=== PATIENT | female | born 1995 | race Caucasian/White ===

== ENCOUNTER 2020-02-19 05:56 | Day surgery (SDC) | payer BC ==
[2020-02-13 09:59] VITALS: BMI 41.8
[2020-02-19] MEDS ORDERED: PROPOFOL 20 ML ONE ×4 (07:12→10:27)
[2020-02-19] MEDS ORDERED: SUCCINYLCHOLINE CHLORIDE 200 MG/10 ML SYRINGE ONE (07:12)
[2020-02-19] MEDS ORDERED: MIDAZOLAM HCL 2 MG/2 ML SINGLE DOSE VIAL ONE ×3 (07:12→07:46)
[2020-02-19] MEDS ORDERED: EPHEDRINE SULFATE/0.9% NACL/PF 50 MG/10 ML SYRINGE NR ONE (07:13)
[2020-02-19] MEDS ORDERED: BUPIVACAINE HCL/PF 0.25% (2.5MG/ML) 10 ML VIAL ONE (07:13)
[2020-02-19] MEDS ORDERED: POLYMYXIN B SULFATE 500,000 UNIT VIAL ONE (07:13)
[2020-02-19] MEDS ORDERED: GENTAMICIN SO4 80 MG/2 ML VIAL ONE (07:13)
[2020-02-19] MEDS ORDERED: ROCURONIUM BROMIDE 50 MG/5 ML SYRINGE ONE (07:15)
[2020-02-19] MEDS ORDERED: BUPIVACAINE HCL/PF 0.5% (5 MG/ML) 30 ML VIAL IJ ONE (07:23)
--- NOTE | 2020-02-19 07:37 | HP ---
Admitting History and Physical - Admission Chief Complaint: Morbid obesity History Source: Patient Limitations to Obtaining History: No Limitations - Past Medical History ...LMP: 01/25/20 - Past Surgical History Additional Past Surgical History: Cervical fusion Radiofrequency ablation greater saphenous veins Lumbar spinal fusion - Smoking History Smoking history: Never smoked Have you smoked in the past 12 months: No - Alcohol/Substance Use Hx Alcohol Use: No - Social History ADL: Independent Home Medications - Allergies Allergies/Adverse Reactions: Allergies Allergy/AdvReac Type Severity Reaction Status Date / Time No Known Allergies Allergy Verified 01/12/20 14:57 - Home Medications Home Medications: Ambulatory Orders Duloxetine HCl 30 mg PO DAILY 01/12/20 Duloxetine HCl 60 mg PO HS 01/12/20 Levonorgestrel-Ethin Estradiol [Larissia-28 Tablet] 1 each PO HS 01/12/20 Levothyroxine [Synthroid -] 150 mcg PO DAILY 01/12/20 Oxycodone HCl/Acetaminophen [Endocet 7.5-325 mg Tablet] 1 each PO QID 01/12/20 Tizanidine HCl 4 mg PO TID PRN 01/12/20 clonazePAM [Klonopin -] 0.5 mg PO BID 01/12/20 traZODone HCL [Desyrel -] 150 mg PO HS 01/12/20 Medical Marijuana [Medical Marijuana Capsules] 1 cap PO DAILY PRN 02/13/20 Family Medical History Family History: Unremarkable Review of Systems - Review of Systems Constitutional: denies: Chills, Fever HENT: reports: No Symptoms Neck: reports: No Symptoms Cardiovascular: reports: No Symptoms Respiratory: reports: No Symptoms Gastrointestinal: reports: No Symptoms Neurological: reports: No Symptoms Pain Intensity: 0 Physical Examination Vital Signs: Vital Signs Temperature 99 F 02/19/20 06:31 Pulse Rate 82 02/19/20 06:31 Respiratory Rate 18 02/19/20 06:31 Blood Pressure 126/89 02/19/20 06:31 O2 Sat by Pulse Oximetry (%) 97 02/19/20 06:31 Constitutional: Yes: Calm Cardiovascular: Yes: WNL Respiratory: Yes: WNL Gastrointestinal: Yes: Soft, Abdomen, Obese Neurological: Yes: Alert, Oriented Problem List - Problems (1) Morbid obesity due to excess calories Code(s): E66.01 - MORBID (SEVERE) OBESITY DUE TO EXCESS CALORIES (2) Morbid obesity with BMI of 40.0-44.9, adult Code(s): E66.01 - MORBID (SEVERE) OBESITY DUE TO EXCESS CALORIES; Z68.41 - BODY MASS INDEX (BMI) 40.0-44.9, ADULT Assessment/Plan Laparoscopic gastric band placement possible liver biopsy possible endoscopy
[2020-02-19] MEDS ORDERED: HYDROmorphone HCL/PF 1 MG/ML VIAL ONE ×2 (08:00→08:32)
[2020-02-19] MEDS ORDERED: ceFAZolin SODIUM 1 GM VIAL ONE (08:07)
[2020-02-19] MEDS ORDERED: DEXAMETHASONE SOD PHOSPHATE 4 MG/1 ML VIAL ONE (08:18)
[2020-02-19] MEDS ORDERED: ONDANSETRON 4 MG/2 ML VIAL ONE ×2 (08:18→10:05)
[2020-02-19] MEDS ORDERED: ONDANSETRON 4 MG/2 ML VIAL IVPUSH PRN ×2 (08:44→11:33)
[2020-02-19] MEDS ORDERED: LACTATED RINGERS SOLUTION 1,000 ML IV SCH (08:45)
[2020-02-19] MEDS ORDERED: HYDROmorphone HCL CARPU-JECT 1 MG/1 ML DISP.SYRIN IVPB PRN (08:47)
[2020-02-19] MEDS ORDERED: BUPIVACAINE HCL/PF 0.25% (2.5MG/ML) 10 ML VIAL IJ ONE (08:50)
[2020-02-19] MEDS ORDERED: METOPROLOL TARTRATE 5 MG/5 ML VIAL ONE (09:29)
[2020-02-19] MEDS ORDERED: NEOSTIGMINE METHYLSULFATE 0.5 MG/ML - 10 ML MDV ONE (09:35)
[2020-02-19] MEDS ORDERED: GLYCOPYRROLATE 0.2 MG/1 ML VIAL ONE (09:35)
--- NOTE | 2020-02-19 11:43 | OPR ---
Operative Note Operative Date: 02/19/20 Pre-Operative Diagnosis: Morbid obesity Operation: 1. Diagnostic laparoscopy. 2. Laparoscopic gastric band 3. Laparoscopic wedge liver biopsy. 4. Laparoscopic oversewing of small bowel serosal defect 5. Laproscopic lysis of adhesions of liver to abdominal wall 6. Laproscopic lysis of adhesions of bowel to bowel 7. Laproscopic lysis of adhesions of stomach to liver 8. Laproscopic repair of hiatal hernia Post-Operative Diagnosis: Same as Pre-op (as well as hepatomegaly and extensive intraabdominal adhesion and hiatal hernia) Surgeon: Felipe Yao Flavor Tank Tender: Wallace Stein Anesthesia: General Specimens Removed: Liver biopsy. Estimated Blood Loss (mls): 30 Drains & Tubes with Location: OG tube Operative Report Dictated: Yes
[2020-02-19] MEDS ORDERED: SODIUM CHLORIDE 1,000 ML IV SCH (11:45)
[2020-02-19] MEDS ORDERED: ACETAMINOPHEN 1000 MG/100 ML VIAL (NON FORMULARY) IVPB SCH (12:00)
[2020-02-19] MEDS ORDERED: ENOXAPARIN NA (PORCINE) 40 MG/0.4 ML DISP.SYRIN SQ ONE ×3 (12:00→14:55)
[2020-02-19] MEDS ORDERED: ACETAMINOPHEN INJECTION 100 ML IVPB ONE (12:06)
[2020-02-19] MEDS ORDERED: FAMOTIDINE 20 MG/50 ML IVPB 20 MG/50 ML MG IVPB ONE (12:06)
[2020-02-19] MEDS ORDERED: FAMOTIDINE 20 MG PREMIXED IVPB IVPB ONE (12:28)
[2020-02-19 12:32] LABS: HEMATOCRIT 38.3 % (32.4-45.2); HEMOGLOBIN 12.7 GM/dl (10.7-15.3); MCH 25.5 pg (25.7-33.7); MCHC 33.3 g/dl (32.0-36.0); MEAN CELL VOLUME 76.6 fl (80-96); MEAN PLT VOLUME 8.6 fl (7.5-11.1); PLATELET COUNT 246 K/MM3 (134-434); RDW 21.6 % (11.6-15.6); WHITE BLOOD COUNT 15.1 K/mm3 (4.0-10.8)
[2020-02-19 12:33] LABS: CALCIUM 8.7 mg/dl (8.5-10); CREATININE 0.7 mg/dl (0.55-1.3); POTASSIUM 4.6 mmol/L (3.5-5.1)
[2020-02-19 14:40] VITALS: TEMP 98
[2020-02-19] MEDS ORDERED: oxyCODONE HCL 5 MG TABLET ONE (15:52)
[2020-02-19 16:34] VITALS: BP 131/79
[2020-02-19 16:53] VITALS: PULSE 91
--- NOTE | 2020-02-19 19:51 | OP ---
DATE OF OPERATION: 02/19/2020 SURGEON: Felipe Yao MD. NATURAL RESOURCES ENGINEER: Wallace Stein MD. PLACE OF SURGERY: [facility], [address] [place] [address]. PREOPERATIVE DIAGNOSIS: 1. Morbid obesity. 2. Body mass index of 41.8. POSTOPERATIVE DIAGNOSIS: 1. Morbid obesity. 2. Body mass index of 41.8. 3. Extensive intraabdominal adhesions. 4. Hepatomegaly. 5. Serosal defect of the small bowel. 6. Hiatal hernia. PROCEDURES: 1. Diagnostic laparoscopy. 2. Extensive laparoscopic lysis of adhesions causing the case to be more complicated than normal and take more time than normal. 3. Laparoscopic gastric band placement with an AP large band. 4. Laparoscopic wedge liver biopsy. 5. Laparoscopic oversewing of small bowel serosal defect. 6. Repair of hiatal hernia. 7. Lysis of adhesions from bowel to bowel. 8. Lysis of adhesions from liver to anterior abdominal wall. 9. Lysis of adhesions for liver to stomach. SPECIMENS: Liver biopsy. BLOOD LOSS: 30 mL. DRAINS: None. ANESTHESIA: GET. OG tube. Lap band large. REASON FOR PROCEDURE: This is a 24-year-old female who presents to the office for weight loss options. I described different options. He decided to proceed with laparoscopic, possible open gastric band, possible liver biopsy, upper endoscopy. RISKS AND BENEFITS: After describing the different options for weight loss management, the patient decided to proceed with a laparoscopic, possible open, gastric band placement for gastric restriction. The patient was seen by the respective subspecialties and cleared for surgery. The risks and benefits of the procedure were explained. These included bleeding, infection, hernia, AL, DVT, PE, injury to surrounding structures including the liver, colon, bowel, spleen, esophagus, vessel injury, nerve injury, weight regain, obstruction, gastric band slip, gastric band erosion, port site slip, port site infection, vitamin deficiency, hair loss, and as some of the possible complications. The patient understood and signed informed consent. DESCRIPTION OF PROCEDURE: The patient was placed supine on the operating room table. The patient underwent general endotracheal intubation. The arms were brought out at 90 degrees and secured. A footboard was placed and the legs were secured laterally with padding. The abdomen was prepped and draped in the usual sterile fashion. A time-out was performed. An incision was made in the left upper quadrant and a Veress needle inserted. Pneumoperitoneum was established. The Veress needle was then removed. A 5-mm trocar was then placed under direct visualization with the laparoscope. Inspection of the abdominal cavity was then performed with the laparoscopic camera. Subsequently, in the right upper quadrant to the right of midline, a 15-mm trocar was inserted under direct visualization. A 5-mm trocar was placed further laterally in the right upper quadrant and a 5-mm trocar placed below the left costal margin. A stab wound was made in the subxiphoid area and a Megan clamp inserted and removed to dilate the tract. A Madison liver retractor was inserted. The post was secured at the bedside by the nursing staff. The patient was placed in steep reverse Trendelenburg position, and the Madison liver retractor was used to secure the liver towards the anterior abdominal wall. The fundus of the stomach was noted and grasped towards the patient's right side and caudad. The omentum was also retracted downward as well. Electrocautery was used to score the peritoneum over the left esophagogastric junction freeing this area until the left elizabeth of the diaphragm was noted. The stomach was then pulled laterally to the patients left side, and the caudate lobe of the liver was identified. The pars flaccida was identified, and an opening created within it. The right elizabeth of the diaphragm was noted. The caudate lobe of the liver was retracted, and the inferior vena cava was noted to be away from the field. The peritoneum anterior to the right elizabeth was scored with electrocautery, and a laparoscopic dissector was used to gently make a tunnel from the right to the left elizabeth until it was free in the left upper quadrant of the abdomen. The gastric band was then chosen and prepped by the rn medical surgical. This was then placed within the abdominal cavity. The band tubing was placed into the laparoscopic dissector, which was pulled and withdrawn to the patients right side. The band tubing was placed within the band buckle and secured, securing the band around the stomach. The band was noted to be in good position and not too tight around the stomach. The stomach was then imbricated over the band. An Endo Stitch was used to grab the body of the stomach and secured to itself, imbricating the stomach over the band. Hemostasis was noted. The band tubing was then brought out of the 15-mm trocar. A wedge liver biopsy was then performed. The left lobe of the liver was identified. A portion of the edge of the left lobe of the liver was grasped. Using electrocautery, a wedge of the left liver was excised. The specimen was removed and sent off the field. Hemostasis of the wedge liver biopsy site was attained and noted using electrocautery. The Madison liver retractor was removed under direct visualization. Pneumoperitoneum was desufflated and all trocars removed. The skin at the 15-mm trocar site was extended, and dissection continued until the anterior fascia was identified. Four 2-0 Prolene sutures were placed in the fascia. The end of the band tubing was cut and removed and sent off the field. The port was secured to the band tubing. The port was secured to the fascia using the four 2-0 Prolene sutures. Hemostasis was again noted. Marcaine was injected at all incision sites. A 3-0 Vicryl suture was used to close the deep subcutaneous tissue at the 15-mm incision site. 4-0 Biosyn sutures were used to close all incision sites. Sterile dressings were applied. The patient tolerated the procedure well and was transferred to the recovery room in stable condition. ADDENDUM: Please note that upon entering the abdominal cavity, extensive adhesions were noted, and the liver was severely enlarged with notable hepatomegaly. This caused the case to be more complicated and take longer than the usual time. Because of adhesions from bowel to bowel, liver to the anterior wall, liver to the stomach, and liver to bowel, these adhesions needed to be carefully taken down. This was done with a combination of LigaSure device, Endoshears, and hook, until all adhesions were carefully taken down. No adhesions were noted, and hemostasis was noted. A small serosal defect of the small bowel was noted, which was oversewn using an Endo Stitch device and Surgitek suture. Because of the lack of stability, an additional 12-mm trocar had to be placed in the supraumbilical area to assist with the surgery. Hiatal hernia was also noted; this was closed using the Endo Stitch with Surgitek suture in [id number] fashion. After the gastric band was placed and the liver biopsy was performed, the rest of the procedure was continued as normal. The fascia at the supraumbilical incision was closed using number 1 Vicryl suture in [id number] fashion until it was closed. This incision was also closed using a 3-0 Vicryl and mayte. Bim were placed at the supraumbilical and incision that was superior and to the right of the umbilicus. Patient tolerated procedure well and transferred to recovery in stable condition. Tl [id number]
[2020-02-19] MEDS ORDERED: FAMOTIDINE 20 MG/50 ML IVPB 20 MG/50 ML MG IVPB SCH (22:00)
--- NOTE | 2020-02-21 16:57 | PATH ---
Surgical Pathology Report Patient Name: GERSON GUARDADO [facility]. Rec. #: [id number] /Age/Gender: 1995 (Age: 24) / F Account: [id number] Location: Taken: 02/19/2020 Received: 02/19/2020 Reported: 02/21/2020 Physicians: Felipe Yao M.D. Specimen(s) Received LIVER BIOPSY Clinical History Morbid obesity Final Diagnosis LIVER, CORE BIOPSY: MILD STEATOHEPATITIS WITH DIFFUSE STEATOSIS (80%), MILD PERICELLULAR INFLAMMATION, AND FOCAL BALLOONING DEGENERATION OF HEPATOCYTES, SEE COMMENT. TRICHROME STAIN SHOWS PERIVENULAR, PERICELLULAR, AND PERIPORTAL FIBROSIS WITH FOCAL FIBROUS SEPTA (STAGE 2/4). IRON STAIN IS NEGATIVE FOR SIDEROSIS. NEGATIVE FOR MALIGNANCY. Electronically Signed Anu Mortensen M.D. Gross Description Received in formalin labeled "liver biopsy," is a 1.9 x 1.0 x 0.4 centimeter diaz-brown portion of soft tissue, consistent with a liver biopsy. The specimen is bisected and entirely submitted in one cassette. /02/20/2020 [facility]/02/20/2020
== END 2020-02-19 17:00 | disposition home or self-care (01) ==
LOC: FASUSAT 05:56
PROVIDERS: ATTEND Surgery
PROC: 0BQT4ZZ Repair Diaphragm, Percutaneous Endoscopic Approach (ICD-10-PCS; 2020-02-19)
PROC: 0DNE4ZZ Release Large Intestine, Percutaneous Endoscopic Approach (ICD-10-PCS; 2020-02-19)
PROC: 0DQ84ZZ Repair Small Intestine, Percutaneous Endoscopic Approach (ICD-10-PCS; 2020-02-19)
PROC: 0DV64CZ Restriction of Stomach with Extraluminal Device, Percutaneous Endoscopic Approach (ICD-10-PCS; principal; 2020-02-19 08:12)
PROC: 0FB24ZX Excision of Left Lobe Liver, Percutaneous Endoscopic Approach, Diagnostic (ICD-10-PCS; 2020-02-19 08:12)
DX: E66.01 Morbid (severe) obesity due to excess calories (principal); Z68.41 Body mass index [BMI] 40.0-44.9, adult; K66.0 Peritoneal adhesions (postprocedural) (postinfection); R16.0 Hepatomegaly, not elsewhere classified; K44.9 Diaphragmatic hernia without obstruction or gangrene; K91.72 Accidental puncture and laceration of a digestive system organ or structure during other procedure
CPT/HCPCS: 36415; 74240-TC-FY; 80048; 81025; 85027; 88305-TC; 88313-TC; 94760; J0131

== ENCOUNTER 2020-05-20 04:38 | Inpatient (IN) | payer BC ==
[2020-05-17 16:41] VITALS: BMI 35.7
[2020-05-20] MEDS ORDERED: HEPARIN NA (PORCINE) 5,000 UNITS/ML 1ML VIAL ONE (07:20)
[2020-05-20] MEDS ORDERED: THROMBIN (BOVINE) 5,000 UNIT VIAL TP ONE ×2 (07:20→09:26)
[2020-05-20] MEDS ORDERED: MIDAZOLAM HCL 2 MG/2 ML SINGLE DOSE VIAL ONE ×2 (08:01→13:04)
[2020-05-20] MEDS ORDERED: PROPOFOL 20 ML ONE ×14 (08:01→13:57)
[2020-05-20] MEDS ORDERED: ROCURONIUM BROMIDE 50 MG/5 ML SYRINGE ONE ×2 (08:01→10:07)
[2020-05-20] MEDS ORDERED: SUCCINYLCHOLINE CHLORIDE 200 MG/10 ML SYRINGE ONE (08:01)
[2020-05-20] MEDS ORDERED: fentaNYL CITRATE 250 MCG/5 ML VIAL ONE ×4 (08:01→11:35)
[2020-05-20] MEDS ORDERED: LIDOCAINE HCL/PF 2% SDV 5ML VIAL ONE (08:03)
[2020-05-20] MEDS ORDERED: ceFAZolin SODIUM 1 GM VIAL ONE ×2 (09:15→14:13)
[2020-05-20] MEDS ORDERED: VANCOMYCIN 1,000 MG VIAL (RESTRICTED TO ID ONLY) ONE (09:15)
[2020-05-20] MEDS ORDERED: SODIUM CHLORIDE 0.9% P/F 10 ML VIAL IJ ONE ×2 (09:15→14:13)
[2020-05-20] MEDS ORDERED: ceFAZolin SODIUM 1 GM VIAL IVPB ONE ×2 (09:20→14:15)
[2020-05-20] MEDS ORDERED: DEXAMETHASONE SOD PHOSPHATE 4 MG/1 ML VIAL ONE (09:24)
[2020-05-20] MEDS ORDERED: ONDANSETRON 4 MG/2 ML VIAL ONE (09:24)
[2020-05-20] MEDS ORDERED: TRANEXAMIC ACID 1000 MG/10 ML VIAL ONE (09:24)
[2020-05-20] MEDS ORDERED: VANCOMYCIN 1,000 MG VIAL (RESTRICTED TO ID ONLY) IVPB ONE (09:25)
[2020-05-20] MEDS ORDERED: GELATIN SPONGE,ABSORBABLE 1 GM PACKET TP ONE (09:26)
[2020-05-20] MEDS ORDERED: GELATIN, ABSORBABLE 12-7MM EACH SPONGE TP ONE (09:26)
[2020-05-20] MEDS ORDERED: DESFLURANE GAS 240 ML BOTTLE IH ONE (09:36)
[2020-05-20] MEDS ORDERED: BUPIVACAINE LIPOSOME/PF (EXPAREL) 266 MG/20 ML VIAL ONE (12:05)
[2020-05-20] MEDS ORDERED: BUPIVACAINE HCL/PF 0.5% (5 MG/ML) 30 ML VIAL IJ ONE ×2 (12:15→13:57)
[2020-05-20] MEDS ORDERED: BUPIVACAINE LIPOSOME/PF (EXPAREL) 266 MG/20 ML VIAL NR ONE ×2 (12:16→13:57)
[2020-05-20] MEDS ORDERED: METOPROLOL TARTRATE 5 MG/5 ML VIAL ONE ×2 (14:17→14:55)
[2020-05-20] MEDS ORDERED: NEOSTIGMINE METHYLSULFATE 0.5 MG/1 ML - 10 ML MDV ONE (14:31)
[2020-05-20] MEDS ORDERED: GLYCOPYRROLATE 0.2 MG/1 ML VIAL ONE (14:31)
[2020-05-20] MEDS ORDERED: hydrALAZINE HCL 20 MG/ML VIAL ONE (15:13)
[2020-05-20] MEDS ORDERED: PROMETHAZINE HCL 25 MG/1 ML VIAL IVPUSH PRN (15:27)
[2020-05-20] MEDS ORDERED: ONDANSETRON 4 MG/2 ML VIAL IVPUSH PRN ×3 (15:27→15:49)
[2020-05-20] MEDS ORDERED: DEXAMETHASONE SOD PHOSPHATE 4 MG/1 ML VIAL IVPUSH PRN (15:27)
[2020-05-20] MEDS ORDERED: PROMETHAZINE HCL 25 MG/1 ML VIAL IVPB PRN (15:27)
--- NOTE | 2020-05-20 15:29 | PN ---
Progress Note (short form) - Note Progress Note: 24F s/p L3-S1 removal of hardware, inspection of fusion mass, revision laminectomies & facetectomies; L3-L4, L4-L5, L5-S1 PLIF; L3-S1 posterior/lateral instrumented spinal fusion POD #0. Output: -Blood loss: 3L. -Urine output: 100cc. Intake: -Cell saver blood: 1L. -4U PRBC: 1.4L. -2U FFP: 642cc. -LR: 3L. -NS: 1L. -Admit to ICU post-op. -Strict I's & O's & fluid management. -Pain control: NO NSAID's; patient received intra-op paraspinal muscle block w/Exparel & marcaine; OK to use SECURITY COMPLIANCE SPECIALIST if needed; transition to oral analgesia post-op. -DVT PPx: -Mechanical only: SUDHIR's, SCD's. -Chemical: None. -Incentive spirometry q15 min. -NPO until flatus. -Barker care; d/c when ambulating. -Ancef post-op x 3 doses; Vancomycin post-op x 24 hours. -PT/OT/Rehab, OOB. -WBAT B/L LE. -No bending, lifting (>5 lbs), or twisting for 9-12 months. -Care per ICU & medical hospitalist teams. -Discharge planning: [facility] preferred if pt. needs rehab; f/u 7-10 days after rehab (or hospital) discharge at [facility] office; call for appointment; . -Will follow. Flako Bryan MD (Orthopaedic Surgery).
--- NOTE | 2020-05-20 15:41 | OP ---
Operative Note - Note: Operative Date: 05/20/20 Pre-Operative Diagnosis: 1. L3-S1 spinal stenosis with associated radiculopathy and neurogenic claudication. 2. Lumbo-sacral pseudarthrosis Operation: 1. Revision laminectomies and facetectomies L3-S1. 2. Osteotomies L3-S1. 3. L3-L4, L4-L5, L5-S1 PLIF. 4. L3-S1 posterolateral instrumented arthrodesis. 5. BMAC autograft. 6. Bone autograft. 7. Bone allograft Findings: 1. Pseudarthrosis L3-L4, L5-S1 2. Broken screw LEFT S1 3. Extensive epidural fibrosis 4. Dural defect involving RIGHT L5 nerve root sleeve w/herniated nerve root Implants: Cages: L3-L4: 13mm. L4-L5: 14mm. L5-S1: 11mm. Screws: Precision reform. L3 6.5x45mm. L4, L5 6.5x40mm. S1 8.5x35mm Post-Operative Diagnosis: Same as Pre-op Surgeon: Flkao Bryan Glue Cook: Taran Bryan Anesthesiologist/SCREWHEAD POLISHER: Abundio Mann Anesthesia: General Specimens Removed: L3-S1 hardware. L3-L4, L4-L5, L5-S1 discs Estimated Blood Loss (mls): 3,000 Drains & Tubes with Location: 1 x 19F superficial HemoVac Blood Volume Replaced (mls): 1,000 (Cell Saver) Fluid Volume Replaced (mls): 4,000 (Crystalloid) Operative Report Dictated: Yes
[2020-05-20] MEDS: LACTATED RINGERS SOLUTION 1,000 ML IV SCH (15:55)
[2020-05-20] MEDS: HYDROmorphone *PCA* 10MG/50ML DISP.SYRIN PCA SCH (15:55)
[2020-05-20] MEDS ORDERED: LACTATED RINGERS SOLUTION 1,000 ML IV SCH (16:00)
--- NOTE | 2020-05-20 16:44 | OP ---
Date of Operation: 05/20/2020 Pre-Operative Diagnosis: 1. 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 2. L3-S1 spinal stenosis with neurogenic claudication. 3. L4-L5, L5-S1 axial segmental instability with associated myofascial pain complex and lumbosacral enthesopathy. 4. In-situ L3-S1 hardware with questionable pseudarthrosis. Post-Operative Diagnosis: 1. 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 2. Severe L3-S1 spinal stenosis with neurogenic claudication. 3. L4-L5, L5-S1 axial segmental instability with associated myofascial pain complex and lumbosacral enthesopathy. 4. L3-L4, L5-S1 pseudarthrosis. 5. Broken hardware (left S1 screw). 5. Extensive epidural fibrosis. 6. Dural defect involving right L5 nerve root sleeve w/herniated nerve root. Procedure Performed: 1. Removal of bilateral posterior segmental instrumentation L3-S1. () 2. Inspection of spinal fusion mass L3-S1. () 3. L3 revision bilateral laminectomies and facetectomies. () 4. L4 revision bilateral laminectomies and facetectomies. () 5. L5 revision bilateral laminectomies and facetectomies. () 6. S1 revision bilateral laminectomies and facetectomies. () 7. L3 bilateral posterior osteotomies. ([id number]) 8. L4 bilateral posterior osteotomies. () 9. L5 bilateral posterior osteotomies. () 10. S1 bilateral posterior osteotomies. (41062-88-64) 11. L3-L4 posterior lumbar interbody fusion (PLIF) and bilateral posterior/lateral arthrodesis. ([id number]) 12. L4-L5 posterior lumbar interbody fusion (PLIF) and bilateral posterior/lateral arthrodesis. ([id number]) 13. L5-S1 posterior lumbar interbody fusion (PLIF) and bilateral posterior/lateral arthrodesis. ([id number]) 14. L3-L4 insertion biomechanical device. ([id number]) 15. L4-L5 insertion biomechanical device. () 16. L5-S1 insertion biomechanical device. () 17. L3-S1 posterior instrumentation; 4 vertebral segments. () 18. Deformity correction; taoism of lordosis. () 19. Morselized bone autograft. () 20. Morselized bone allograft. () 21. Bone marrow aspiration for bone grafting. () 22. Complex wound closure, 4 layers, 30cm. ([id number] x 4) 23. Fluoroscopy. ([id number]) 24. Durotomy repair. ([id number]) Surgeon: Flako Bryan M.D. Driver Material Handler: Taran Bryan M.D. Anesthesiologist: Tequila Mann M.D. Anesthesia: General, Local. Implants: Cages: RTI Fortilink Tetrafuse: L3-L4: 13mm. L4-L5: 14mm. L5-S1: 11mm. 6 degrees lordosis, each cage. Screws: Precision Reform: L3 6.5x45mm bilaterally. L4, L5 6.5x40mm bilaterally. S1 8.5x35mm bilaterally. Rods: 100mm bilaterally. Position: Prone. Incision: Midline. Specimens Removed: L3-S1 hardware; excised scar; L3-S1, L4-L5, L5-S1 disc. Drains: 1 x 19F superficial HemoVac. Estimated Blood Loss: 3L. Intravenous Fluid: 4L crystalloid. Transfusions: 1L Cell Saver; 4U PRBC; 2U FFP. Complications: None. Bacteriology: None. Closure: No. 1 Vicryl, 2-0 Biosyn absorbable sutures. Indications: The patient was indicated for the above listed surgical procedure due to progressive neurological and functional decline that limits her mobility and capacity to independently perform routine activities of daily living. In the months leading up to the procedure, the patient became bedbound and was barely able to ambulate with maximum assistance from her bed to her bathroom. She suffered constant, debilitating daily low back pain with pain, numbness, and tingling that radiated from her lower back bilaterally to her buttocks, thigh, legs, ankles, and feet. Her progressive weakness resulted in buckling of her knees during attempted standing and ambulation with a concerning fall risk. After multiple failed prior operations, Debora was indicated for revision lumbar spinal surgery to fully decompress the thecal sac and nerve roots from L3-S1 with a thorough inspection of the previously attempted fusion. In the 6 months leading up to the surgery, Debora transformed from 58 tall, 285 lbs weight, 43.3 kg/m2 BMI to 55 tall, 237 lbs weight, 36 kg/m2 BMI. This was with the help of revision bariatric surgery. Despite her weight loss, the patient remains morbidly obese. The patient was identified in the holding area by her armband. A long discussion was held with the patient regarding the risks, benefits, and alternatives of the above-named procedure. The risks include, but are not limited to: pain, bleeding, infection, damage to surrounding structures (including nerves, blood vessels, skin, ligaments, tendons, and bone), nerve palsy, paresthesias, weakness, limp, wound complications, pseudarthrosis, failure of fusion, failure of hardware/implants/reduction, need for further surgery, blood clots, myocardial infarction, pulmonary embolism, cerebrovascular event, anesthesia complications, neurological injury, loss of function, and . Benefits as mentioned above. Alternatives include no surgery. All questions were answered. The patient understood and agreed to the procedure. Informed consent was obtained, witnessed, and verified by hospital nursing staff. The patients lumbar spine was marked. The patient was then assessed by the anesthesia team and nursing staff, and was then taken to the operating room. Procedure: The patient was brought into the operating room. Consent and the operative site were again verified with the patient, the nursing team, the surgical team, and the anesthesiology team. Anesthesia, IV antibiotics, and TXA were then administered without complication. A time out was done, led by me the attending surgeon. An indwelling Barker catheter was successfully inserted by the nursing team. The intra-operative neuromonitoring team provided prepositioning baseline motor and sensory readings. The patient was then safely placed in a prone position with all bony prominences well-padded on a [employer] [facility] [employer] OSI spine table with strict attention paid to maintenance of sagittal vertical alignment. Retroversion of the pelvis was avoided by ensuring that the hips were extended. This also ensured appropriate lumbar lordosis. The arms were placed on well-padded arm boards and maintained with standard forward flexion, abduction, and external rotation of the shoulders, and flexion of the elbows. Special attention was given to the safe positioning of the cervical spine. The patients eyes, breasts, and belly were all free. The table was placed in 6 degrees of reverse Trendelenburg position to avoid ophthalmic vein congestion. Post-positional motor and sensory readings confirmed no change. A C-arm fluoroscopy unit was positioned perpendicularly to the table and maintained at the level of the upper thoracic spine, except when needed. Verification of the intended surgical levels was confirmed with a lateral fluoroscopic x-ray using a an 18-gauze needle next to the patients body for localization. The skin was prepped in standard, sterile fashion using betadine prep & scrub, wiped off with alcohol, and DuraPrep applied. Standard window draping was utilized, and this included draping of the C-arm. All pre-operative imaging was available throughout the case for intraoperative evaluation. A time-out was repeated, and the case began. An elliptical incision flanking the previous midline skin incision was performed from the tip of the spinous process of L1 to the tip of the spinous process of S2. The previous midline incision, pedicle and associated scar was excised. Using electrocautery, the dissection was carried down through subcutaneous fat and then through the midline of the lumbodorsal fascia down to the tips of the spinous processes. A subperiosteal dissection was performed using a combination of unipolar electrocautery and Mahajan elevation. This was carried down the spinous process, over the laminae, across the facet joints, and out over the tips of the transverse processes from L3 to the ala of the sacrum. The posterolateral dissection was performed with attention to hemostasis by utilizing both unipolar as well as bipolar electrocautery. In this dissection, the capsules of the L2-L3 joints were preserved bilaterally. The L3-L4, L4-L5, and L5-S1 joint capsules were pathologically hypertrophic. These facet joints were ablated using electrocautery and resected with Leksell rongeurs. The posterolateral and intertransverse spaces were packed with Ray-Javier sponges. The in-situ hardware was exposed bilaterally from L3-S1. All screw caps were removed. A Leksell rongeur was used to grasp the L3, L4, and L5 screw tulips and demonstrate the mobility of the L3-L4, and L5-S1 segments. This inspection of the spinal fusion mass confirmed pseudarthroses at L3-S1 and L5-S1. All screws were removed from L3-S1 bilaterally. The left S1 screw shaft was broken, and the broken distal segment of the screw was left deep within the pedicle and the S1 bone. The decision was made not to remove the broken screw, as this would have required the use of a trephine. A trephine would have carved out an extensive amount of bone around the screw, which would have compromised the quality of subsequent screw fixation at that level. Instead, we later decided to place a screw through the am entry point, but aimed lateral to the trajectory of the originally placed, but now broken, screw. Bilateral laminectomies were performed at L3, L4, L5, and S1 utilizing Kerrison rongeur upcuts combined with Leksell rongeurs. This was extraordinarily challenging due to extensive epidural fibrosis (IE scar tissue) that had formed as a natural consequence of the patients multiple previous operations. This scar tissue had enveloped the thecal sac and exiting nerve roots from L3- S1, which were now stuck down in place. All harvested bone was saved, freed of fibrous tissue, and morselized with a bone mill. Next, an osteotome was utilized to bilaterally and longitudinally split the pars interarticularis, and the inferior facets of L3, L4, and L5. The osteotomized bone was imploded towards the thecal sac, which was protected with cottonoid patties, and removed with either a Leksell rongeur or a Kerrison ronguer. The ligamentum flavum and other posterior soft tissue remained intact and served as a soft-tissue cushion which protected the dura during the bony implosion. Upon removal of all osteotomized bone, we gained clear and easy access to the superior facets of L4, L5, and S1, where abnormally tight recess stenosis and severe compression of the associated thecal sac and nerve roots was appreciated. The exiting L3, L4, L5, & S1 nerve roots were identified and protected. More than the medial half of the superior facet was resected on each side using Kerrison rongeurs. This was necessary to adequately decompress the theca and the exiting nerve roots at each level. The extensive epidural fibrosis and posterior facet joint capsules contributed to the recess stenosis. These structures were excised using Kerrison upcuts, thus fully completing the decompression. Each foramen from L3-S1 was inspected utilizing an angled ball-tipped probe and proved to be generously capacious in accommodating the unobstructed exit of the nerve root at that level. During the meticulous dissection, decompression, and neurolysis of the neural elements (IE the thecal sacs and bilateral L3-S1 nerve roots), a dural defect overlying the right L5 nerve root sleeve was identified. Furthermore, the L5 nerve root had herniated through this dural defect and was entrapped. We were able to successfully mobilize the L5 nerve root, reduce it within its sleeve, and repair the dural defect with three 4.0 Nurolon sutures. The anesthesiologist then performed a Valsalva maneuver up to 40mmHg. There was no evidence of dural defect, cerebrospinal fluid leak, or uncontrollable bleeding. The dural repair was clearly successful. All retractors were relaxed and removed. A Jamshidi needle was delivered into the left posterior ileum through the same surgical incision. Via this, 60 mL of bone marrow was aspirated and spun down to isolate a mix of osteoprogenitor and hematopoietic cells. Retractors were inserted once again. In order to adequately decompress each lateral recess and neuroforamen from L3- S1, greater than 50% of the facet joint on each side was osteotomized and resected. This extensive decompression has been shown to result in iatrogenic instability of the spine (I.E. spondylolisthesis). Thus, the decision was made to additionally perform posterior lumbar interbody fusions at L4-L5 and L5-S1 (where the discs were additionally compromised) with instrumented posterolateral arthrodesis from L3-S1. The combination of anterior interbody arthrodesis and posterolateral instrumented arthrodesis is known to produce the highest success rates of spinal fusion surgery. The following was performed at L3-L4, L4-L5 and L5-S1: The theca was gently mobilized from left to right using a nerve root retractor. In order to do this, we ensured that each nerve root was completely free in its neural foramen as previously described. With the intervertebral disc clearly visualized, enormous epidural veins were cauterized using bipolar electrocautery. The disc was approached from the left side and using a #11-blade, an elliptical annulotomy was performed. Destinee were passed into the disc at each level. At each level the discs were morselized with rotation of the destinee, and then extricated with pituitary rongeurs and saved for lab evaluation. The end plates were freed of all soft tissues using a serrated curette. Milled bone autograft was packed into the interbody space, thus completing an anterior arthrodesis of the intervertebral space. A Fortilink Tetrafuse intervertebral cage, that was packed with autograft bone, was inserted into the prepared intervertebral space. The cage was placed in a Press-Fit type manner where the destinee were one size under the actual size of the spacer placed as outlined above. An interference fit of the cage assured as we relied on ligamentotaxis for fixation. Placement of the interbody cage additionally reconstituted the intervertebral disc height, which further decompressed the stenosed neuroforaminae bilaterally. No further dural problems were encountered, and the dura appeared healthy throughout the procedure. At this point, the neuromonitoring revealed no complications. Cages and sizes inserted: L3-L4: [id number]. L4-L5: [id number]. L5-S1: [id number]. All cages had 6 degrees of built-in lordosis to help reduce the patients kyphotic deformity and restore adequate lumbar lordosis. Each pedicle from L3-S1 was palpated with a ball-tipped feeler. No breech of anterior, medial, lateral, caudal or cranial bone bed was noted. The previous screw holes were utilized for placement of new screws. Precision Spine Reform screws were inserted bilaterally from L3 to S1. The left S1 screw trajectory was prepared via the same starting point as the previously placed screw, except aimed slightly laterally. A 4.5mm pneumatic drill was passed via the left S1 pedicle, into the corresponding vertebral body. This ensured excellent bony fixation without colliding with the in situ, broken screw. All intraoperative neuromonitoring readings were at or above the safe passage of 10 mA except the left L5 and S1 screws which read 8 mA. The L3, L4, L5 and S1 pedicles were inspected and palpated using an angled ball- tipped probe. There was no evidence of screw breach involving any of the pedicles. Next, two rods were contoured, inserted, and fixed into the screw heads with the appropriate screw caps. A torque-limiting device completed the fixation of each cap into each screw head. No crosslink utilized because of the bulging dura. Next, the muscle was gently retracted off the intertransverse plane. All Ray-Javier packing sponges were removed. Milled autologous bone with allograft expansion was combined with the bone marrow aspirate concentrate and used for the posterolateral arthrodesis along the intertransverse plane from L3 to S1. Prior to this bone grafting, the recipient bone bed was denuded of all soft tissue. No burring was necessary due to healthy bleeding of each bony surface, including the posterior surfaces of the bilateral transverse processes, and the lateral surfaces of the pars interarticularis at each level. Throughout the case, the wound was irrigated with normal saline solution to keep the exposed soft tissues hydrated. The retractors were released every 15 to 20 minutes to enable adequate blood flow to the paraspinal muscles. These muscles were gently massaged upon release of the retractors to further facilitate blood flow. At the end of the procedure, fragmented and compromised paraspinal muscle was superficially debrided. The anesthesiologist then performed a repeat Valsalva maneuver up to 40mmHg. There was no evidence of dural defect, cerebrospinal fluid leak, or uncontrollable bleeding. The repaired dural defect was covered with SurgiCel and sealed with DuraSeal. The paraspinal muscles bilaterally were infused with a total of 20cc of Exparel and 20cc of 0.25% Marcaine for local anesthetic effect. Closure: The lumbodorsal fascia overlying the paraspinal musculature was closed in the midline using #1 vicryl sutures in simple interrupted fashion. A 19F HemoVac drain was placed in the plane superficial to the fascia, exiting adjacent to the proximal apex of the incision. The wound was repeatedly thoroughly irrigated with normal saline solution. The subcutaneous tissues were closed using #1 Vicryl sutures. The skin was closed using a running 2-0 Biosyn absorbable suture. This completed a 4-layered complex wound closure of approximately 30cm. The skin was then painted with benzoin and Steri-Strips were applied without tension perpendicularly to the incision. A Primapore adhesive Telfa island dressing was applied over the Steri-Strips and a sterile, compressive dressing was applied using 4x4 gauze pads. The skin was painted with DuraPrep. The wound was then sealed with adhesive Ioban. Final AP & lateral fluoroscopic analysis revealed L3-L4, L4-L5 and L5-S1 PLIF cages and L3-S1 instrumentation that appeared intact & place. The L3-L4, L4-L5 and L5-S1 disc heights were reconstituted with visibly patent neuroforaminae, and excellent lordosis achieved. There was no fluoroscopic evidence of retained sponges or needles. The sponge and needle counts were correct at the end of the case and I, the attending surgeon, was present and scrubbed throughout the case. All neural monitoring leads were removed. The patient was transferred to a hospital bed. The patient was then transferred to the recovery room in stable condition, as per the anesthesia team, having tolerated the procedure well. Overall comments: Operation went extremely well with no complications. All appropriate goals were achieved in this operative event. The patients morbid obesity increased the technical complexity of the case. The fact that the patient had multiple previous lumbar spine operations that resulted in extensive, dangerous epidural fibrosis increased the technical complexity of the case. These factors necessitated increased physical and mental effort to successfully execute the surgical plan. MD ASHLEY Rausch/[id number] MTDD
[2020-05-20 17:15] LABS: HEMATOCRIT 46.3 % (32.4-45.2); HEMOGLOBIN 15.6 GM/dL (10.7-15.3); MCH 29.1 pg (25.7-33.7); MCHC 33.7 g/dl (32.0-36.0); MEAN CELL VOLUME 86.5 fl (80-96); MEAN PLT VOLUME 9.9 fl (7.5-11.1); PLATELET COUNT 182 K/MM3 (134-434); RBC 5.35 M/mm3 (3.60-5.2); RDW 13.1 % (11.6-15.6); WHITE BLOOD COUNT 15.8 K/mm3 (4.0-10.0)
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
[2020-05-20 17:27] LABS: INR 1.21 (0.83-1.09); PROTHROMBIN TIME (PATIENT) 14.2 SEC (9.7-13.0)
[2020-05-20 17:29] LABS: ACTIVATED PTT 28.3 SECONDS (25.2-36.5)
[2020-05-20 17:43] LABS: BLOOD UREA NITROGEN 14.2 mg/dL (7-18); CALCIUM 7.9 mg/dL (8.5-10.1); CREATININE 0.8 mg/dL (0.55-1.3); POTASSIUM 4.8 mmol/L (3.5-5.1)
[2020-05-20] MEDS: VANCOMYCIN 1 GM in D5W (PRE-DOCKED) 1,000 MG/250 ML IVPB SCH (18:37)
[2020-05-20] MEDS: ceFAZolin 2 GRAM PREMIX BAG IVPB SCH (21:16)
[2020-05-20] MEDS: clonazePAM 0.5 MG TABLET PO SCH (21:16)
[2020-05-20] MEDS ORDERED: DULoxetine HCL 60 MG CAPSULE.DR PO SCH (22:00)
[2020-05-21] MEDS: ceFAZolin 2 GRAM PREMIX BAG IVPB SCH ×2 (01:30→09:15)
[2020-05-21] MEDS: LACTATED RINGERS SOLUTION 1,000 ML IV SCH ×4 (02:00→21:35)
[2020-05-21] MEDS: VANCOMYCIN 1 GM in D5W (PRE-DOCKED) 1,000 MG/250 ML IVPB SCH (06:14)
[2020-05-21] MEDS: LEVOTHYROXINE NA 125 MCG TABLET (FP) PO SCH (06:47)
[2020-05-21] MEDS ORDERED: PCA PUMP NR ONE ×2 (07:29→23:44)
[2020-05-21] MEDS ORDERED: DULoxetine HCL 60 MG CAPSULE.DR PO SCH (07:44)
[2020-05-21] MEDS ORDERED: PT OWN MED DRAWER 7, Y5N ONE (07:45)
[2020-05-21 07:46] LABS: HEMATOCRIT 42.5 % (32.4-45.2); HEMOGLOBIN 14.3 GM/dL (10.7-15.3); MCH 28.5 pg (25.7-33.7); MCHC 33.6 g/dl (32.0-36.0); MEAN CELL VOLUME 84.8 fl (80-96); MEAN PLT VOLUME 9.2 fl (7.5-11.1); PLATELET COUNT 153 K/MM3 (134-434); RBC 5.01 M/mm3 (3.60-5.2); RDW 13.1 % (11.6-15.6); WHITE BLOOD COUNT 13.1 K/mm3 (4.0-10.0)
[2020-05-21] MEDS: HYDROmorphone HCl 2 MG/ML VIAL SQ PRN ×3 (07:58→21:32)
[2020-05-21] MEDS: HYDROmorphone *PCA* 10MG/50ML DISP.SYRIN PCA SCH ×3 (08:01→21:57)
[2020-05-21 08:14] LABS: BLOOD UREA NITROGEN 15.8 mg/dL (7-18); CREATININE 0.6 mg/dL (0.55-1.3); MAGNESIUM 1.8 mg/dL (1.8-2.4); POTASSIUM 3.9 mmol/L (3.5-5.1)
[2020-05-21] MEDS: DULoxetine HCL 30 MG CAPSULE.DR PO SCH ×2 (09:35→21:32)
[2020-05-21] MEDS: clonazePAM 0.5 MG TABLET PO SCH ×2 (09:35→21:33)
--- NOTE | 2020-05-21 11:26 | PN ---
Progress Note (short form) - Note Progress Note: Anesthesiology Post-op/ Pain Service POD#
--- NOTE | 2020-05-21 11:34 | PN ---
Progress Note (short form) - Note Progress Note: Anesthesiology Post-op/ Pain Service POD#1 s/p L3-S1 revision decompression/fusion under GA with post-op MUSEUM REGISTRAR. Pt. is sleeping comfortably in NAD. Per RN, pt. was very uncomfortable ON; she received some boluses and has been comfortable for some time now. Otherwise, she is stable with no other issues. 24 y.o woman with stable post-operative course on MUSEUM REGISTRAR. Continue MUSEUM REGISTRAR for now until diet advanced, other management as per medical team.
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
--- NOTE | 2020-05-21 13:54 | PN ---
Physical Exam: SUBJECTIVE: Patient seen and examined at bedside. No acute events overnight. Complains of pain, instructed on how to use the EVENT MARKETING REPRESENTATIVE. OBJECTIVE: Vital Signs Period Temp Pulse Resp BP Sys/Olivares Pulse Ox Last 24 Hr 98.3 F-99.8 F 93-138 12-24 120-145/66-102 95-100 GENERAL: Awake, alert, and fully oriented, in pain HEAD: Normal with no signs of trauma. EYES: PERRL, EOMI ENT: Moist mucous membranes. NECK: supple LUNGS: CTA BL HEART: RRR, s1, s2 ABDOMEN: Soft, nontender, not distended, surgical drain in place MUSCULOSKELETAL: full strength in UE & LE BL UPPER EXTREMITIES: warm, well-perfused. No peripheral edema. LOWER EXTREMITIES: warm, well-perfused. No peripheral edema. NEUROLOGICAL: Cranial nerves II-XII intact. Normal speech. PSYCHIATRIC: Cooperative. SKIN: warm, multiple tattoos, cheeks both erythematous, lips slightly swollen Laboratory Results - last 24 hr 05/20/20 05/20/20 05/20/20 16:30 16:30 16:30 WBC 15.8 H RBC 5.35 H Hgb 15.6 H Hct 46.3 H MCV 86.5 MCH 29.1 MCHC 33.7 RDW 13.1 Plt Count 182 MPV 9.9 PT with INR 14.20 H INR 1.21 H PTT (Actin FS) 28.3 Sodium 140 Potassium 4.8 Chloride 109 H Carbon Dioxide 25 Anion Gap 6 L BUN 14.2 Creatinine 0.8 Est GFR (CKD-EPI)AfAm 119.60 Est GFR (CKD-EPI)NonAf 103.19 Random Glucose 123 H Calcium 7.9 L Phosphorus Magnesium 05/21/20 05/21/20 06:12 06:12 WBC 13.1 H RBC 5.01 Hgb 14.3 Hct 42.5 MCV 84.8 MCH 28.5 MCHC 33.6 RDW 13.1 Plt Count 153 MPV 9.2 PT with INR INR PTT (Actin FS) Sodium 138 Potassium 3.9 Chloride 105 Carbon Dioxide 26 Anion Gap 7 L BUN 15.8 Creatinine 0.6 Est GFR (CKD-EPI)AfAm 147.86 Est GFR (CKD-EPI)NonAf 127.58 Random Glucose 83 Calcium 8.0 L Phosphorus 5.0 H Magnesium 1.8 Active Medications Generic Name Dose Route Start Last Admin Trade Name Freq PRN Reason Stop Dose Admin Clonazepam 0.5 mg 05/20/20 22:00 05/21/20 09:35 Klonopin - PO 0.5 mg BID AVINASH Administration Dexamethasone Sodium Phosphate 4 mg 05/20/20 15:27 Decadron Injection - IVPUSH ONCE PRN NAUSEA AND/OR VOMITING Duloxetine HCl 30 mg 05/21/20 10:00 05/21/20 09:35 Cymbalta - PO 30 mg DAILY AVINASH Administration Duloxetine HCl 60 mg 05/21/20 09:41 Cymbalta - PO HS AVINASH Hydromorphone HCl 10 mg 05/20/20 15:30 05/21/20 08:01 Hydromorphone 10 Mg/50 Ml-Ns EVENT MARKETING REPRESENTATIVE 05/27/20 15:28 10 mg EVENT MARKETING REPRESENTATIVE AVINASH Administration Protocol Hydromorphone HCl 2 mg 05/20/20 20:59 05/21/20 07:58 Dilaudid Vial - SQ 2 mg Q6H PRN Administration PAIN LEVEL 6-10 Lactated Ringer's 1,000 mls @ 125 mls/hr 05/20/20 15:30 05/21/20 12:21 Lactated Ringers Solution IV 125 mls/hr ASDIR AVINASH Administration Levothyroxine Sodium 125 mcg 05/21/20 07:00 05/21/20 06:47 Synthroid - PO 125 mcg ACBK AVINASH Administration Ondansetron HCl 4 mg 05/20/20 15:27 Zofran Injection IVPUSH Q4H PRN NAUSEA AND/OR VOMITING Ondansetron HCl 4 mg 05/20/20 15:27 Zofran Injection IVPUSH Q6H PRN NAUSEA AND/OR VOMITING Promethazine HCl 12.5 mg 05/20/20 15:27 Phenergan Injection - IVPUSH Q6H PRN NAUSEA-FOR RESCUE AFTER 15 MIN ASSESSMENT/PLAN: 24 yo female s/p L3-S1 removal of hardware, inspection of fusion mass, revision laminectomies & facetectomies; L3-L4, L4-L5, L5-S1 PLIF; L3-S1 posterior/lateral instrumented spinal fusion. Neuro - Strict I's & O's & fluid management. - Pain control: NO NSAID's; - paraspinal muscle block w/Exparel & marcaine - Dilaudid EVENT MARKETING REPRESENTATIVE, transition to oral analgesics - Decadron Pulm - no issues - incentive spirometry q15 mins post op Cardio - no issues - cardiac monitoring on ICU ID - Ancef post-op x 3 doses - Vancomycin post-op q12h x 24 hours. - monitor for p/o fever -d/c rutledge once ambulating GI - NPO until flatus - zofran & promethazine PRN for nausea - no ppx - discontinue rutledge once ambulatory Heme - received 4 units blood due to 3L estimated blood loss during surgery - trend H&H Endo - currently has on control patch - continue synthroid Psych - Hx of anxiety - as per surgery: continue klonopin & duloxetine, hold trazodone DVT ppx - BL TEDS & SCDs only FEN - LR 125cc/hr - NPO until flatus - Rutledge care; d/c when ambulating. Dispo: - PT/OT/Rehab, OOB. - WBAT B/L LE. - No bending, lifting (>5 lbs), or twisting for 9-12 month - Discharge planning: [facility] preferred if pt. needs rehab; f/u 7-10 days after rehab (or hospital) discharge at [facility] office; call for appointment; . - Will follow. Visit type - Emergency Visit Emergency Visit: Yes ED Registration Date: 05/20/20 Care time: The patient presented to the Emergency Department on the above date and was hospitalized for further evaluation of their emergent condition. - New Patient This patient is new to me today: No - Critical Care Critical Care patient: No ATTENDING PHYSICIAN STATEMENT I saw and evaluated the patient. I reviewed the resident's note and discussed the case with the resident. I agree with the resident's findings and plan as documented. SUBJECTIVE: OBJECTIVE: ASSESSMENT AND PLAN:
[2020-05-22] MEDS ORDERED: PCA PUMP NR ONE ×4 (00:22→14:17)
[2020-05-22] MEDS: HYDROmorphone HCl 2 MG/ML VIAL SQ PRN ×2 (03:00→14:04)
[2020-05-22] MEDS: LEVOTHYROXINE NA 125 MCG TABLET (FP) PO SCH (06:31)
--- NOTE | 2020-05-22 08:26 | PN ---
Physical Exam: SUBJECTIVE: Patient seen and examined. Pt reports pain is well controlled. OBJECTIVE: Vital Signs Period Temp Pulse Resp BP Sys/Olivares Pulse Ox Last 24 Hr 97.7 F-99 F 115-150 14-24 113-143/80-102 95-100 GENERAL: Awake, alert, and fully oriented, in pain HEAD: Normal with no signs of trauma. EYES: PERRL, EOMI ENT: Moist mucous membranes. NECK: supple LUNGS: CTA BL HEART: RRR, s1, s2 ABDOMEN: Soft, nontender, not distended, surgical drain in place MUSCULOSKELETAL: full strength in UE & LE BL UPPER EXTREMITIES: warm, well-perfused. No peripheral edema. LOWER EXTREMITIES: warm, well-perfused. No peripheral edema. NEUROLOGICAL: Cranial nerves II-XII intact. Normal speech. PSYCHIATRIC: Cooperative. SKIN: warm, multiple tattoos, cheeks both erythematous, lips slightly swollen ASSESSMENT/PLAN: 24 yo female s/p L3-S1 removal of hardware, inspection of fusion mass, revision laminectomies & facetectomies; L3-L4, L4-L5, L5-S1 PLIF; L3-S1 posterior/lateral instrumented spinal fusion. Neuro -Strict I's & O's & fluid management. -Pain control: NO NSAID's; -Dilaudid COMMUNITY OUTREACH ADVOCATE, transition to oral analgesics -Decadron Pulm No issues Incentive spirometry q15 mins post op Cardio No issues Cardiac monitoring on ICU ID Monitor for p/o fever GI Soft diet Zofran & Promethazine PRN for nausea No ppx Barker removed Heme s/p 4 units blood due to 3L estimated blood loss during surgery Trend H&H, stable Endo Currently has on control patch Hypothyroidism -Continue home synthroid Psych - Hx of anxiety - as per surgery: continue klonopin & duloxetine, hold trazodone DVT ppx TEDS & SCDs only Dispo: - PT/OT/Rehab, OOB - WBAT B/L LE - No bending, lifting (>5 lbs), or twisting for 9-12 month - Discharge planning: [facility] preferred if pt. needs rehab; f/u 7-10 days after rehab (or hospital) discharge at [facility] office; call for appointment; - Pt no longer requires ICU level of care. Plan for transfer to floor today Visit type - Emergency Visit Emergency Visit: Yes ED Registration Date: 05/20/20 Care time: The patient presented to the Emergency Department on the above date and was hospitalized for further evaluation of their emergent condition. - New Patient This patient is new to me today: No - Critical Care Critical Care patient: Yes Total Critical Care Time (in minutes): 36 Critical Care Statement: The care of this patient involved high complexity decision making to prevent further life threatening deterioration of the pa rigo's condition and/or to evaluate & treat vital organ system(s) failure or risk of failure. ATTENDING PHYSICIAN STATEMENT I saw and evaluated the patient. I reviewed the resident's note and discussed the case with the resident. I agree with the resident's findings and plan as documented. SUBJECTIVE: OBJECTIVE: ASSESSMENT AND PLAN:
[2020-05-22] MEDS: DULoxetine HCL 30 MG CAPSULE.DR PO SCH ×2 (09:39→21:24)
[2020-05-22] MEDS: clonazePAM 0.5 MG TABLET PO SCH ×2 (09:39→21:24)
--- NOTE | 2020-05-22 10:23 | PN ---
Progress Note (short form) - Note Progress Note: POD#2 ICU Doing well Fully orientated TPP Comfortable No significant incisional pain Original leg pain gone Walked in the hallway Hungry Vitals Stable Apyrexial CVS Stable RESP Bilateral clear AE No endobronchial secretions ABD Soft Minimal distesion No tenderness Passed flatus Neuro LE Fully intact Motor and sensory evaluation. Wound Dry bandage Drain in situ 120mls ASSESS Revision spinal surgery Doing well PLAN PT mobilize FWBAT Pain mx ? pull drains tomorrow Can T/F to floor
--- NOTE | 2020-05-22 11:43 | PN ---
Progress Note (short form) - Note Progress Note: The pt is a 24F s/p L3-S1 removal of hardware, inspection of fusion mass, revision laminectomies & facetectomies; L3-L4, L4-L5, L5-S1 PLIF; L3-S1 posterior/lateral instrumented spinal fusion on 05/20/2020 w/ Dr. Bryan. The pt presented post-op to the ICU. The pt's rutledge was removed, she has been OOB, and her diet has been advanced to a soft diet. Pt's rutledge was also removed Pt denies any numbness or tingling in her lower extremities Per Dr. Bryan, pt now okay to be transferred to floor.
--- NOTE | 2020-05-22 12:39 | HOSP ---
Subjective - Review of Symptoms Events since last encounter: Internal Medicine service acceptance note: Subjective: Patient seen and examined at bedside. Denies acute complaints. Physical Examination Vital Signs: Vital Signs Temperature 98.1 F 05/22/20 10:00 Pulse Rate 135 H 05/22/20 12:00 Respiratory Rate 18 05/22/20 12:00 Blood Pressure 125/68 05/22/20 12:00 O2 Sat by Pulse Oximetry (%) 100 05/22/20 10:00 Findings/Remarks: GENERAL: The patient is awake, alert, and fully oriented, in no acute distress. HEAD: Normocephalic, atraumatic. EYES: PERRL, extraocular movements intact, sclera anicteric, conjunctiva clear. ENT: Oropharynx clear, without erythema or exudates. Moist mucous membranes. NECK: Trachea midline, full range of motion. Supple without lymphadenopathy. LUNGS: Breath sounds equal, clear to auscultation bilaterally. No wheezes, no crackles. No accessory muscle use. HEART: Regular rate and rhythm. S1, S2 without murmur, rub or gallop. ABDOMEN: Soft, nondistended, nontender to light and deep palpation x4 quadrants. No rebound tenderness, no guarding. Normoactive bowel sounds x4 quadrants. No hepatosplenomegaly, no masses appreciated. EXTREMITIES: 2+ radial, dorsalis pedis pulses bilaterally. Warm, well-perfused. No lower extremity edema bilaterally. NEUROLOGICAL: Cranial nerves II through XII grossly intact. Normal speech. No gross focal deficits. PSYCH: Normal mood, normal affect upon my encounter. SKIN: Warm, dry. Wound drain with serosanguinous drainage. Labs: CBC, BMP 05/21/20 06:12 05/21/20 06:12 Hospitalist Encounter Assessment: Patient is a 24 year old female with history of anxiety, lumbar spinal stenosis, hypothyroidism, admitted to ICU postoperatively after revision of laminectomies and facetectomies L3-S1, Osteotomies L3-S1, L3-L4, L4-L5, L5-S1 PLIF, L3-S1 posterolateral instrumented arthrodesis and BMAC, bone autograft and allograft with Dr. Bryan. Patient has remained hemodynamically stable postoperatively, and accepted to Medicine Service. Lumbar spinal stenosis -POD # 2 s/p laminectomies and facetectomies L3-S1, Osteotomies L3-S1, L3-L4, L4-L5, L5-S1 PLIF, L3-S1 posterolateral instrumented arthrodesis and BMAC, bone autograft and allograft with Dr. Bryan -Incentive spirometer -Patient received ANCEF x3 doses postoperatively -Pain control with Dilaudid -Orthopedic surgery recommendations (Dr. Bryan) appreciated -Sinus tachycardia, likely secondary to pain, anxiety. Negative calf tenderness, or swelling/ erythema and patient is saturating 100% on room air. Discussed with pulmonology, low suspicion for pulmonary embolism at this time. Will initiate Propranolol for anxiety, tachycardia. History of anxiety -Continue Cymbalta, Clonazepam Hiustory of hypothyroidism -Continue home Synthroid -TSH free T4 FEN -No IV fluids indicated -Follow BMP -Soft diet, advance as tolerated Prophylaxis -SCDs bilateral lower extremities, per surgery Disposition -Patient accepted to Medicine Service Transfer to Telemetry floor Visit type - Emergency Visit Emergency Visit: Yes ED Registration Date: 05/20/20 Care time: The patient presented to the Emergency Department on the above date and was hospitalized for further evaluation of their emergent condition. - New Patient This patient is new to me today: Yes Date on this admission: 05/22/20 - Critical Care Critical Care patient: No
[2020-05-22] MEDS ORDERED: SODIUM CHLORIDE 0.9% 500 ML INFUS.BAG IV ONE (12:57)
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
[2020-05-22 15:12] LABS: HEMATOCRIT 34.8 % (32.4-45.2); HEMOGLOBIN 11.5 GM/dL (10.7-15.3); MCHC 32.9 g/dl (32.0-36.0); MEAN CELL VOLUME 85.1 fl (80-96); MEAN PLT VOLUME 9.1 fl (7.5-11.1); PLATELET COUNT 147 K/MM3 (134-434); RBC 4.09 M/mm3 (3.60-5.2); RDW 13.3 % (11.6-15.6); WHITE BLOOD COUNT 12.1 K/mm3 (4.0-10.0)
[2020-05-22] MEDS: HYDROmorphone *PCA* 10MG/50ML DISP.SYRIN PCA SCH (15:21)
[2020-05-22 15:35] LABS: BLOOD UREA NITROGEN 11.2 mg/dL (7-18); CREATININE 0.5 mg/dL (0.55-1.3); MAGNESIUM 1.7 mg/dL (1.8-2.4); PHOSPHOROUS 2.2 mg/dL (2.5-4.9)
[2020-05-23] MEDS: HYDROmorphone HCl 2 MG/ML VIAL SQ PRN ×3 (04:14→22:27)
[2020-05-23] MEDS: LEVOTHYROXINE NA 125 MCG TABLET (FP) PO SCH (06:09)
[2020-05-23] MEDS ORDERED: PT OWN MED DRAWER 7, Y5N ONE (07:14)
[2020-05-23 07:24] LABS: HEMATOCRIT 29.1 % (32.4-45.2); HEMOGLOBIN 9.7 GM/dL (10.7-15.3); MCH 28.5 pg (25.7-33.7); MCHC 33.5 g/dl (32.0-36.0); MEAN CELL VOLUME 85.1 fl (80-96); MEAN PLT VOLUME 8.9 fl (7.5-11.1); PLATELET COUNT 122 K/MM3 (134-434); RBC 3.42 M/mm3 (3.60-5.2); RDW 13.4 % (11.6-15.6); WHITE BLOOD COUNT 8.6 K/mm3 (4.0-10.0)
[2020-05-23 08:03] LABS: POTASSIUM 3.6 mmol/L (3.5-5.1)
[2020-05-23 08:27] LABS: ALBUMIN 1.8 g/dl (3.4-5.0); BILIRUBIN,TOTAL 0.7 mg/dL (0.2-1); BLOOD UREA NITROGEN 9.2 mg/dL (7-18); CALCIUM 7.8 mg/dL (8.5-10.1); CREATININE 0.3 mg/dL (0.55-1.3); MAGNESIUM 1.9 mg/dL (1.8-2.4); PHOSPHOROUS 2.3 mg/dL (2.5-4.9); TOT PROT 4.3 g/dl (6.4-8.2)
[2020-05-23] MEDS ORDERED: MAGNESIUM SULF 50% (8.12 MEQ/2 ML-1 GM VIAL) IVPB ONE (09:45)
[2020-05-23] MEDS: NAPH,MB-DB/K PH,MBDB POWDER PACKET PO ONE ×2 (09:57→11:00)
[2020-05-23] MEDS: clonazePAM 0.5 MG TABLET PO SCH ×2 (09:57→22:25)
[2020-05-23] MEDS: DULoxetine HCL 30 MG CAPSULE.DR PO SCH (09:57)
[2020-05-23] MEDS: MULTIVIT-MINERALS ORAL LIQUID PO SCH ×2 (10:00→12:25)
[2020-05-23] MEDS: HYDROmorphone *PCA* 10MG/50ML DISP.SYRIN PCA SCH (11:30)
[2020-05-23] MEDS ORDERED: KETOROLAC TROMETHAMINE 30 MG/1 ML VIAL IVPUSH ONE (11:50)
[2020-05-23] MEDS ORDERED: ACETAMINOPHEN 1000 MG/100 ML VIAL (NON FORMULARY) IVPB ONE (11:50)
--- NOTE | 2020-05-23 11:52 | PN ---
Progress Note (short form) - Note Progress Note: POD3 s/p extensive lumbar surgery on DIRECTOR OF INFECTION CONTROL. Pt still c/o breathrough pain- will add single dose of ketorolac and ofirmev for breakthrough pain, maintain DIRECTOR OF INFECTION CONTROL at current settings (pt drowsy so will not increase dose). Will follow
--- NOTE | 2020-05-23 12:57 | PATH ---
Surgical Pathology Report Patient Name: GERSON GUARDADO [facility]. Rec. #: [id number] /Age/Gender: 1995 (Age: 24) / F Account: [id number] [facility]: 05/20/2020 Received: 05/21/2020 Reported: 05/23/2020 Physicians: Flako Bryan M.D. Specimen(s) Received A: SCAR EXCISION B: EPIDERMAL FIBROSIS C: DISC L3-4, L4-5, L5, S1 D: REMOVED HARDWARE Clinical History Intravertebral disc disorder with radiculopathy Final Diagnosis A. SCAR, EXCISION: PORTION OF SKINS WITH SCAR. B. EPIDERMAL FIBROSIS, EXCISION: PORTIONS OF FIBROCONNECTIVE TISSUE WITH EMBEDDED NONVIABLE BONE FRAGMENTS SHOWING FIBROSIS. C. DISC L3-L4, L4-L5, L5-S1, EXCISION: PORTIONS OF FIBROCARTILAGINOUS TISSUE. NEGATIVE FOR MALIGNANCY. D. REMOTE HARDWARE: CONSISTENT HARDWARE. GROSS ONLY. Electronically Signed Anu Mortensen M.D. Gross Description A. Received in formalin labeled "scar excision," are 2 portions of skin with underlying soft tissue measuring 6.5 x 5.5 x 1.4 cm and 15.5 x 2.0 x 0.8 cm, consistent with scar tissue. Loom Tuner sections are submitted in one cassette. B. Received in formalin labeled "epidural fibrosis," is an 8.5 x 6.0 x 0.9 cm aggregate of multiple portions of firm fibrous tissue. Loom Tuner sections are submitted in one cassette. C. Received in formalin labeled "disc L3-L4, L4-L5, L5-S1," is a 5.0 x 3.6 x 0.5 cm aggregate of diaz fragments of fibrocartilaginous tissue. A Loom Tuner portion is submitted in one cassette. D. Received fresh labeled "removed hardware," are 2 blue metallic, bent rods averaging 10 cm in length. Also received within the same container are 16 clay metallic screws ranging from 0.5-6.2 cm in length. No soft tissue is present. No sections are submitted, gross only. DL/05/21/2020 saudi/05/21/2020
--- NOTE | 2020-05-23 12:57 | PN ---
Teaching Attending Note Name of Resident: Deborah Nelson ATTENDING PHYSICIAN STATEMENT I saw and evaluated the patient. I reviewed the resident's note and discussed the case with the resident. I agree with the resident's findings and plan as documented. SUBJECTIVE: Patient resting in bed comfortably Eating well had BM today was able to ambulate with walker with PT Occasionally states pain is not controlled with SEISMIC SURVEY ASSISTANT OBJECTIVE: Vital Signs Period Temp Pulse Resp BP Sys/Olivares Pulse Ox Last 24 Hr 98.1 F-99.2 F 80-137 12-21 107-145/55-96 94-100 Physical Exam as noted in Resident note ASSESSMENT AND PLAN: This is a 24 y/o female with history of anxiety, lumbar spinal stenosis, hypothyroidism, admitted to ICU postoperatively after revision of laminectomies and facetectomies L3-S1, Osteotomies L3-S1, L3-L4, L4-L5, L5-S1 PLIF, L3-S1 posterolateral instrumented arthrodesis and BMAC, bone autograft and allograft. S/p Lumbar Surgery Continue Pain control with SEISMIC SURVEY ASSISTANT Anesthesia for adjustment as needed Appreciate NeuroSx recs Decadron Tachycardia Likely in setting of pain/anxiety Hold off on treating with BB, would prefer to treat the underlying etiology Psych Disorder: Continue Klonapin, Cymblata Restart Trazodone Hypothyroidism Continue Synthroid PPx: SCD
--- NOTE | 2020-05-23 14:07 | PN ---
Physical Exam: SUBJECTIVE: Patient seen and examined. Pt is POD #3. Overnight, pt complained of pain at surgical site. Pt was tearful during interview and said she was in intense pain. Pt rated pain 10/10 on my evaluation. Pt stated that the PLASTER MACHINE OPERATOR pump with medication administration every 15 minutes is insufficient in managing her pain. Pt denied fevers, chills, c/p SOB, abdominal pain, n/v/d. OBJECTIVE: Vital Signs Period Temp Pulse Resp BP Sys/Olivares Pulse Ox Last 24 Hr 98.1 F-98.7 F 80-137 12-21 107-145/55-96 94-100 GENERAL: Tearful, awake, alert. In moderate distress, due to pain. HEENT: NCAT, EOMI, moist mucus membranes. LUNGS: CTA b/l. No wheezes. No accessory muscle use. HEART: Regular rate and rhythm. S1, S2 without murmur ABDOMEN: Soft, nondistended, nontender palpation in 4 quadrants. Normoactive bowel sounds present. EXTREMITIES: Warm, well-perfused. No edema. NEUROLOGICAL: Cranial nerves II through XII grossly intact. Normal speech. No gross focal deficits. SKIN: Warm, dry. Wound drain with minimal serosanguinous drainage. Laboratory Last Values WBC 8.6 K/mm3 (4.0-10.0) 05/23/20 05:46 RBC 3.42 M/mm3 (3.60-5.2) L 05/23/20 05:46 Hgb 9.7 GM/dL (10.7-15.3) L 05/23/20 05:46 Hct 29.1 % (32.4-45.2) L D 05/23/20 05:46 MCV 85.1 fl (80-96) 05/23/20 05:46 MCH 28.5 pg (25.7-33.7) 05/23/20 05:46 MCHC 33.5 g/dl (32.0-36.0) 05/23/20 05:46 RDW 13.4 % (11.6-15.6) 05/23/20 05:46 Plt Count 122 K/MM3 (134-434) L 05/23/20 05:46 MPV 8.9 fl (7.5-11.1) 05/23/20 05:46 PT with INR 14.20 SEC (9.7-13.0) H 05/20/20 16:30 INR 1.21 (0.83-1.09) H 05/20/20 16:30 PTT (Actin FS) 28.3 SECONDS (25.2-36.5) 05/20/20 16:30 Sodium 135 mmol/L (136-145) L 05/23/20 05:46 Potassium 3.6 mmol/L (3.5-5.1) 05/23/20 05:46 Chloride 100 mmol/L (98-107) 05/23/20 05:46 Carbon Dioxide 30 mmol/L (21-32) 05/23/20 05:46 Anion Gap 4 MMOL/L (8-16) L 05/23/20 05:46 BUN 9.2 mg/dL (7-18) 05/23/20 05:46 Creatinine 0.3 mg/dL (0.55-1.3) L 05/23/20 05:46 Est GFR (CKD-EPI)AfAm 185.74 05/23/20 05:46 Est GFR (CKD-EPI)NonAf 160.25 05/23/20 05:46 Random Glucose 67 mg/dL (74-106) L 05/23/20 05:46 Calcium 7.8 mg/dL (8.5-10.1) L 05/23/20 05:46 Phosphorus 2.3 mg/dL (2.5-4.9) L 05/23/20 05:46 Magnesium 1.9 mg/dL (1.8-2.4) 05/23/20 05:46 Total Bilirubin 0.7 mg/dL (0.2-1) 05/23/20 05:46 AST 20 U/L (15-37) 05/23/20 05:46 ALT 14 U/L (13-61) 05/23/20 05:46 Alkaline Phosphatase 52 U/L (45-117) 05/23/20 05:46 Total Protein 4.3 g/dl (6.4-8.2) L 05/23/20 05:46 Albumin 1.8 g/dl (3.4-5.0) L 05/23/20 05:46 TSH 3.59 uIU/ml (0.358-3.74) 10/15/20 05:46 Free T4 1.25 ng/dl (0.76-1.46) 05/23/20 05:46 Serum , Qual Negative 05/20/20 06:15 Blood Type A POSITIVE 05/20/20 06:15 Antibody Screen Negative 05/20/20 06:15 Crossmatch See Detail 05/20/20 06:15 Active Medications Clonazepam (Klonopin -) 0.5 mg PO BID [facility] Last Admin: 05/23/20 09:57 Dose: 0.5 mg Documented by: Dexamethasone Sodium Phosphate (Decadron Injection -) 4 mg IVPUSH ONCE PRN PRN Reason: NAUSEA AND/OR VOMITING Duloxetine HCl (Cymbalta -) 30 mg PO DAILY [facility] Last Admin: 05/23/20 09:57 Dose: 30 mg Documented by: Duloxetine HCl (Cymbalta -) 60 mg PO HS [facility] Last Admin: 05/22/20 21:24 Dose: 60 mg Documented by: Hydromorphone HCl (Hydromorphone 10 Mg/50 Ml-Ns) 10 mg PLASTER MACHINE OPERATOR PLASTER MACHINE OPERATOR [facility]; Protocol Stop: 05/27/20 15:28 Last Admin: 05/23/20 11:30 Dose: 10 mg Documented by: Hydromorphone HCl (Dilaudid Vial -) 2 mg SQ Q6H PRN PRN Reason: PAIN LEVEL 6-10 Last Admin: 05/23/20 10:24 Dose: 2 mg Documented by: Levothyroxine Sodium (Synthroid -) 125 mcg PO ACBK [facility] Last Admin: 05/23/20 06:09 Dose: 125 mcg Documented by: Multivitamins/Minerals (Certavite-Antioxidant Liquid) 15 ml PO DAILY [facility] Last Admin: 05/23/20 12:25 Dose: Not Given Documented by: Ondansetron HCl (Zofran Injection) 4 mg IVPUSH Q4H PRN PRN Reason: NAUSEA AND/OR VOMITING Ondansetron HCl (Zofran Injection) 4 mg IVPUSH Q6H PRN PRN Reason: NAUSEA AND/OR VOMITING Promethazine HCl (Phenergan Injection -) 12.5 mg IVPUSH Q6H PRN PRN Reason: NAUSEA-FOR RESCUE AFTER 15 MIN Propranolol HCl (Inderal -) 10 mg PO BID [facility] Last Admin: 05/23/20 12:25 Dose: Not Given Documented by: Trazodone HCl (Desyrel -) 150 mg PO HS [facility] ASSESSMENT/PLAN: Pt is a 24 yo F with PMH of anxiety, lumbar spinal stenosis, hypothyroidism, admitted to ICU s/p revision of laminectomies and facetectomies L3-S1, Osteotomies L3-S1, L3-L4, L4-L5, L5-S1 Posterior lumbar interbody fusion, L3-S1 posterolateral instrumented arthrodesis and BMAC (bone marrow aspirate concentrate), bone autograft and allograft on 05/[address] Bryan. Lumbar spinal stenosis, post-op -POD # 3 -c/w incentive spirometer -c/w dilaudid 2mg SQ q6H PRN and PLASTER MACHINE OPERATOR for pain -Given 1x ketorolac and ofirmev for breakthrough pain -Orthopedic surgery recommendations (Dr. Bryan) appreciated. -c/w promethazine 12.5mg IVP q6h PRN, ondansetron 4mg q4H and q6H PRN, dexamethasone 4mg IVP once PRN for nausea/vomiting -Anesthesia for PLASTER MACHINE OPERATOR adjustments. Will maintain current settings, given pt's drowsiness. -For breakthrough pain, may give another 1x dose ketorolac 30mg and ofirmev 1g IVPB History of anxiety -c/w duloxetine 30mg daily and 60mg qHS, trazodone 150mg qHS, clonazepam 0.5mg BID Hypothyroidism, chronic -c/w Synthroid -TSH and free T4 within normal limits FEN -No standing fluids -replete lytes as needed -Soft diet Ppx -DVT: SCDs bilateral lower extremities Dispo -continue to monitor in telemetry Visit type - Emergency Visit Emergency Visit: No - New Patient This patient is new to me today: No - Critical Care Critical Care patient: No ATTENDING PHYSICIAN STATEMENT I saw and evaluated the patient. I reviewed the resident's note and discussed the case with the resident. I agree with the resident's findings and plan as documented. SUBJECTIVE: OBJECTIVE: ASSESSMENT AND PLAN:
[2020-05-23] MEDS ORDERED: PCA PUMP NR ONE (21:32)
[2020-05-23] MEDS ORDERED: traZODone HCL 50 MG TABLET (FP) PO SCH (22:00)
[2020-05-23] MEDS ORDERED: PROMETHAZINE HCL 25 MG/1 ML VIAL IVPUSH PRN (22:09)
[2020-05-23] MEDS ORDERED: ONDANSETRON 4 MG/2 ML VIAL IVPUSH PRN ×2 (22:09)
[2020-05-23] MEDS ORDERED: HYDROmorphone *PCA* 10MG/50ML DISP.SYRIN PCA SCH (22:09)
[2020-05-23] MEDS ORDERED: DEXAMETHASONE SOD PHOSPHATE 4 MG/1 ML VIAL IVPUSH PRN (22:09)
[2020-05-23] MEDS ORDERED: DULoxetine HCL 30 MG CAPSULE.DR PO SCH (22:15)
[2020-05-24] MEDS: HYDROmorphone HCl 2 MG/ML VIAL SQ PRN (06:56)
[2020-05-24] MEDS ORDERED: LEVOTHYROXINE NA 125 MCG TABLET (FP) PO SCH (07:00)
[2020-05-24 07:01] LABS: HEMATOCRIT 28.3 % (32.4-45.2); HEMOGLOBIN 9.6 GM/dL (10.7-15.3); MCHC 33.9 g/dl (32.0-36.0); MEAN CELL VOLUME 85.5 fl (80-96); MEAN PLT VOLUME 8.4 fl (7.5-11.1); PLATELET COUNT 157 K/MM3 (134-434); RBC 3.31 M/mm3 (3.60-5.2); RDW 13.1 % (11.6-15.6); WHITE BLOOD COUNT 5.9 K/mm3 (4.0-10.0)
[2020-05-24 07:30] LABS: BLOOD UREA NITROGEN 10.9 mg/dL (7-18); CALCIUM 7.8 mg/dL (8.5-10.1); POTASSIUM 3.4 mmol/L (3.5-5.1)
[2020-05-24 07:33] LABS: CREATININE 0.5 mg/dL (0.55-1.3)
[2020-05-24] MEDS ORDERED: DULoxetine HCL 30 MG CAPSULE.DR PO SCH (10:00)
[2020-05-24] MEDS: MULTIVIT-MINERALS ORAL LIQUID PO SCH (10:19)
[2020-05-24] MEDS: clonazePAM 0.5 MG TABLET PO SCH (10:19)
--- NOTE | 2020-05-24 12:54 | PN ---
Progress Note (short form) - Note Progress Note: 24F POD4 s/p lumbosaccral revision fusion doing well. Pain is well controlled with Dilaudid CLAIMS ADJUDICATOR. Decreased CLAIMS ADJUDICATOR use, pt transitioned to oral pain medication by primary team. 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
--- NOTE | 2020-05-24 14:04 | PN ---
Progress Note (short form) - Note Progress Note: Surgery: Pt without any headache, ambulating and voiding without difficulty. She has had a bowel movement and is tolerating a diet. Vital Signs Period Temp Pulse Resp BP Sys/Olivares Pulse Ox Last 24 Hr 98.2 F-98.2 F 78-111 15-19 96-117/51-63 99-105 Hemovac: 70 ml serosangrenous GEN: A&0x3 Back: Original surgical dressing in place and dry. Drain removed. Upper part of iodoform dressing edges cut back and reinforced edges with tegaderm. Neuro: palletizer strength equal b/l. 5/5 dorsi/plantar EHL b/l. CBC, BMP 05/24/20 06:05 05/24/20 06:05 A/p: 24 yo female s/p L3-S1 revision laminectomy, POD#4 Pt seen to day with Dr. Bryan, she remains surgically stable Plan for discharge to home today, instructed pt on follow up care
--- NOTE | 2020-05-24 14:47 | DS ---
Physical Exam: SUBJECTIVE: Patient seen and examined. Pain improved. Rated 6/10 on my encounter. Eager to go home. OBJECTIVE: Vital Signs Period Temp Pulse Resp BP Sys/Olivares Pulse Ox Last 24 Hr 98.2 F-98.2 F 78-111 15-19 96-117/51-63 99-105 PHYSICAL EXAM GENERAL: Awake and alert. Not in acute distress. HEENT: NCAT, EOMI, moist mucus membranes. LUNGS: CTA b/l. No wheezes. No accessory muscle use. HEART: Regular rate and rhythm. S1, S2 without murmur ABDOMEN: Soft, nondistended, nontender palpation in 4 quadrants. Normoactive bowel sounds present. EXTREMITIES: Warm, well-perfused. No edema. NEUROLOGICAL: Cranial nerves II through XII grossly intact. Normal speech. No gross focal deficits. SKIN: Warm, dry. Surgical site clean, dry and intact. LABS Laboratory Last Values WBC 5.9 K/mm3 (4.0-10.0) 05/24/20 06:05 RBC 3.31 M/mm3 (3.60-5.2) L 05/24/20 06:05 Hgb 9.6 GM/dL (10.7-15.3) L 05/24/20 06:05 Hct 28.3 % (32.4-45.2) L 05/24/20 06:05 MCV 85.5 fl (80-96) 05/24/20 06:05 MCH 29.0 pg (25.7-33.7) 05/24/20 06:05 MCHC 33.9 g/dl (32.0-36.0) 05/24/20 06:05 RDW 13.1 % (11.6-15.6) 05/24/20 06:05 Plt Count 157 K/MM3 (134-434) D 05/24/20 06:05 MPV 8.4 fl (7.5-11.1) 05/24/20 06:05 PT with INR 14.20 SEC (9.7-13.0) H 05/20/20 16:30 INR 1.21 (0.83-1.09) H 05/20/20 16:30 PTT (Actin FS) 28.3 SECONDS (25.2-36.5) 05/20/20 16:30 Sodium 138 mmol/L (136-145) 05/24/20 06:05 Potassium 3.4 mmol/L (3.5-5.1) L 05/24/20 06:05 Chloride 102 mmol/L (98-107) 05/24/20 06:05 Carbon Dioxide 30 mmol/L (21-32) 05/24/20 06:05 Anion Gap 6 MMOL/L (8-16) L 05/24/20 06:05 BUN 10.9 mg/dL (7-18) 05/24/20 06:05 Creatinine 0.5 mg/dL (0.55-1.3) L 05/24/20 06:05 Est GFR (CKD-EPI)AfAm 157.00 05/24/20 06:05 Est GFR (CKD-EPI)NonAf 135.46 05/24/20 06:05 Random Glucose 69 mg/dL (74-106) L 05/24/20 06:05 Calcium 7.8 mg/dL (8.5-10.1) L 05/24/20 06:05 Phosphorus 2.3 mg/dL (2.5-4.9) L 05/23/20 05:46 Magnesium 1.9 mg/dL (1.8-2.4) 05/23/20 05:46 Total Bilirubin 0.7 mg/dL (0.2-1) 05/23/20 05:46 AST 20 U/L (15-37) 05/23/20 05:46 ALT 14 U/L (13-61) 05/23/20 05:46 Alkaline Phosphatase 52 U/L (45-117) 05/23/20 05:46 Total Protein 4.3 g/dl (6.4-8.2) L 05/23/20 05:46 Albumin 1.8 g/dl (3.4-5.0) L 05/23/20 05:46 TSH 3.59 uIU/ml (0.358-3.74) 05/23/20 05:46 Free T4 1.25 ng/dl (0.76-1.46) 05/23/20 05:46 Serum , Qual Negative 05/20/20 06:15 Blood Type A POSITIVE 05/20/20 06:15 Antibody Screen Negative 05/20/20 06:15 Crossmatch See Detail 05/20/20 06:15 HOSPITAL COURSE: Pt is a 24 yo F with PMH of anxiety, lumbar spinal stenosis, hypothyroidism, was admitted to ICU s/p revision of laminectomies and facetectomies L3-S1, Osteotomies L3-S1, L3-L4, L4-L5, L5-S1 Posterior lumbar interbody fusion, L3-S1 posterolateral instrumented arthrodesis and BMAC (bone marrow aspirate concentrate), bone autograft and allograft on 05/[address] Bryan. She had since been downgraded to telemetry given her stable status. Pt compliant with using incentive spirometer. Pt has pain controlled with dilaudid 4mg PO q4H. She participated with PT and was able to ambulate with a rolling walker. Pt is medically optimized to be discharged home where she will receive PT and follow up nursing. Date of Admission:05/20/20 Date of Discharge: 05/24/20 Minutes to complete discharge: 36 Discharge Summary Problems reviewed: Yes Reason For Visit: INTERVERTEBRAL DISC DISORDER W/RADICULOPATHY Current Active Problems Anxiety (Chronic) Hypothyroidism (Chronic) Condition: Improved - Instructions Diet, Activity, Other Instructions: Your visit: You were admitted to the hospital for an elective spinal surgery: L3-S1 laminectomy revision. Your surgery was done by Dr. Bryan on 05/20/2020. You were monitored post-operatively to control your pain and manage your wound drain. Your pain is currently under control with oral medications and your drain was removed. You are stable and may continue your care at home with visiting nurse services. Medications changes: Please continue to take Hydromorphone 4mg by mouth every 6 hours as needed for pain. Continue to take all other home medications as prescribed. -Lansoprazole 30mg by mouth daily -Trazodone 150mg by mouth at bedtime -Clonazepam 0.5mg twice a day -Methocarbamol 500mg by mouth three times a day for muscle spasms and pain. -Liraglutide 3mg subcutaneously daily for diabetes. -Duloxetine 30mg in the morning and 60mg at bedtime for your anxiety. -Xulane patch 1 patch each week for control. Avoid ibuprofen and related medications until you consult with Dr. Bryan Follow up: Visit and make an appointment with your primary care provider in 2 weeks. If you do not have a primary care provider you may make an appointment with Dr. Deborah Nelson on Wednesdays at the [facility] clinic located at [address] [place] [address] ([phone]). Please make an appointment with your orthopedic surgeon, Dr. Bryan, in 1 week. You may discuss your surgery and have your incision evaluated during this visit. Additional Instructions: You are being discharged to your home. You are accepted to [facility] for follow up nursing and physical therapy at home. Please return to the Emergency Department if you experience worsening pain, fevers, chills, shortness of breath, or chest pain, or if you experience any worsening, new or concerning symptoms. Surgical Instructions: Leave dressing in place. This is the original dressing from the operating room. Reinforce with tegaderm if the edges start to peel. May shower but make sure that the dressing is sealed to prevent water from getting under the dressing. Follow up in the [place] [facility] next week, call to schedule an appointment time. No heavy lifting ( > 5 pound, ) no twisting. you will be instructed otherwise by dr. Bryan when you see him No driving while on dilaudid Referrals: Ridge White MD [Staff Physician] - 2 Weeks Taran Bryan MD [Staff Physician] - 1 Week Disposition: VNS/HOME HEALTH CARE - Home Medications Comprehensive Discharge Medication List: Ambulatory Orders Duloxetine HCl 30 mg PO DAILY 01/12/20 Duloxetine HCl 60 mg PO HS 01/12/20 Levothyroxine [Synthroid -] 125 mcg PO DAILY 01/12/20 clonazePAM [Klonopin -] 0.5 mg PO BID 01/12/20 traZODone HCL [Desyrel -] 150 mg PO HS 01/12/20 Norelgestromin/Ethin.estradiol [Xulane Patch] 1 each TD WEEKLY 05/17/20 Liraglutide [Saxenda] 3 mg SQ DAILY 05/21/20 Methocarbamol [Robaxin -] 500 mg PO TID 05/21/20 Lansoprazole [Prevacid -] 30 mg PO DAILY 05/23/20 HYDROmorphone [Dilaudid -] 4 mg PO Q4H PRN #42 tablet MDD 24 05/24/20 This patient is new to me today: No Emergency Visit: No Critical Care patient: No - Discharge Referral Referred to [facility] No ATTENDING PHYSICIAN STATEMENT I saw and evaluated the patient. I reviewed the resident's note and discussed the case with the resident. I agree with the resident's findings and plan as documented. SUBJECTIVE: OBJECTIVE: ASSESSMENT AND PLAN:
[2020-05-24 15:15] VITALS: BP 114/61; PULSE 116
--- NOTE | 2020-05-24 15:36 | PN ---
Teaching Attending Note Name of Resident: Deborah Nelson ATTENDING PHYSICIAN STATEMENT I saw and evaluated the patient. I reviewed the resident's note and discussed the case with the resident. I agree with the resident's findings and plan as documented. SUBJECTIVE: seen around 11 am No fever or chills. pain is acceptable. no numbness or tingling in LE. has b/l weakness whcih is chronci . OBJECTIVE: NAd. CV: RRr Lungs: CTAB Ext : No edema or erythema on upper o lower extremities MS: a large dressing on back, with a drain with serosanguinous drainage . neuro of LE : hip flexion 4/5 b/l. knee flexion , ankle dosriflexion /plantar flexion 5/5 . nl sensation 2+ knee jerk b/l ASSESSMENT AND PLAN: 24 y/o lady fay was admitted for revision laminectomies and other lumbar procedure 1- spinal stenosis 2- s/p revision laminectomies 3- h/o hypothyroidism 4 - h/o anxiety plan : - leave dressing intact until she follows with dr. 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 - PT arranged and VNS - cont home meds - no heavy lifting or twisting . f/u with dr. Randi chavez home with VNS today
[2020-05-24 15:58] VITALS: TEMP 97.9
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
== END 2020-05-24 17:48 | disposition home health service (06) | DRG 454 ==
LOC: J2C 04:38 → JICU 17:08 → J4W 05-23 20:56
PROVIDERS: ADMIT Orthopaedic Surgery Adult Reconstructive Orthopaedic Surgery; ATTEND Internal Medicine
PROC: 0SG1071 Fusion of 2 or more Lumbar Vertebral Joints with Autologous Tissue Substitute, Posterior Approach, Posterior Column, Open Approach (ICD-10-PCS; 2020-05-20)
PROC: 0QB00ZZ Excision of Lumbar Vertebra, Open Approach (ICD-10-PCS; 2020-05-20)
PROC: 00NY0ZZ Release Lumbar Spinal Cord, Open Approach (ICD-10-PCS; 2020-05-20)
PROC: 0SP304Z Removal of Internal Fixation Device from Lumbosacral Joint, Open Approach (ICD-10-PCS; 2020-05-20)
PROC: 0SG30AJ Fusion of Lumbosacral Joint with Interbody Fusion Device, Posterior Approach, Anterior Column, Open Approach (ICD-10-PCS; 2020-05-20)
PROC: 0SG3071 Fusion of Lumbosacral Joint with Autologous Tissue Substitute, Posterior Approach, Posterior Column, Open Approach (ICD-10-PCS; 2020-05-20)
PROC: 00QT0ZZ Repair Spinal Meninges, Open Approach (ICD-10-PCS; 2020-05-20)
PROC: 00UT0KZ Supplement Spinal Meninges with Nonautologous Tissue Substitute, Open Approach (ICD-10-PCS; 2020-05-20)
PROC: 0SB40ZZ Excision of Lumbosacral Disc, Open Approach (ICD-10-PCS; 2020-05-20)
PROC: 07DR0ZZ Extraction of Iliac Bone Marrow, Open Approach (ICD-10-PCS; 2020-05-20)
PROC: B01BZZZ Fluoroscopy of Spinal Cord (ICD-10-PCS; 2020-05-20)
PROC: 4A1004G Monitoring of Central Nervous Electrical Activity, Intraoperative, Open Approach (ICD-10-PCS; 2020-05-20)
PROC: 30233R1 Transfusion of Nonautologous Platelets into Peripheral Vein, Percutaneous Approach (ICD-10-PCS; 2020-05-20)
PROC: 30233L1 Transfusion of Nonautologous Fresh Plasma into Peripheral Vein, Percutaneous Approach (ICD-10-PCS; 2020-05-20)
PROC: 30233K1 Transfusion of Nonautologous Frozen Plasma into Peripheral Vein, Percutaneous Approach (ICD-10-PCS; 2020-05-20)
PROC: 0SG10AJ Fusion of 2 or more Lumbar Vertebral Joints with Interbody Fusion Device, Posterior Approach, Anterior Column, Open Approach (ICD-10-PCS; principal; 2020-05-20 08:00)
DX: M51.16 Intervertebral disc disorders with radiculopathy, lumbar region (principal); G96.11 Dural tear; M48.062 Spinal stenosis, lumbar region with neurogenic claudication; M48.07 Spinal stenosis, lumbosacral region; M46.07 Spinal enthesopathy, lumbosacral region; Y83.9 Surgical procedure, unspecified as the cause of abnormal reaction of the patient, or of later complication, without mention of misadventure at the time of the procedure; E66.01 Morbid (severe) obesity due to excess calories; Z68.35 Body mass index [BMI] 35.0-35.9, adult; E03.9 Hypothyroidism, unspecified; R00.0 Tachycardia, unspecified; F41.8 Other specified anxiety disorders; G47.00 Insomnia, unspecified; K21.9 Gastro-esophageal reflux disease without esophagitis; G89.29 Other chronic pain; D64.9 Anemia, unspecified
CPT/HCPCS: 36415; 36430; 76000-TC-FY; 80048; 80053; 83735; 84100; 84439; 84443; 84703; 85027; 85610; 85730; 86850; 86891; 86900; 86901; 86922; 88300-TC; 88304-TC; 94010; 94760; 97116-GP; 97161-GP; J0131; J1644; P9017; P9058

== ENCOUNTER 2023-03-29 22:06 | Inpatient (IN) | payer OTHER, BC ==
[2023-03-29] MEDS ORDERED: LORazepam 2 MG/ML SDV VIAL IVPUSH ONE (22:36)
[2023-03-29] MEDS ORDERED: VANCOMYCIN 1,000 MG in DEXTROSE 5%-WATER - 250 ML IVPB ONE (22:37)
[2023-03-29] MEDS ORDERED: CEFAZOLIN 2 GM in DEXTROSE 5%-WATER - 50 ML IVPB ONE (22:37)
[2023-03-29] MEDS ORDERED: VANCOMYCIN 1 GRAM (PRE-DOCKED) 1,000 MG/250 ML BAG IVPB ONE (23:36)
[2023-03-29] MEDS ORDERED: ceFAZolin SODIUM 1 GM VIAL ONE (23:36)
[2023-03-30 01:01] LABS: BASO % 0.7 % (0-2.0); EOS % 1.5 % (0-4.5); HEMATOCRIT 36.2 % (32.4-45.2); HEMOGLOBIN 11.8 GM/dL (10.7-15.3); LYMPH % 45.2 % (8-40); MCH 27.3 pg (25.7-33.7); MCHC 32.5 g/dl (32.0-36.0); MEAN CELL VOLUME 83.9 fl (80-96); MEAN PLT VOLUME 8.1 fl (7.5-11.1); MONO % 5.2 % (3.8-10.2); NEUT % 47.4 % (42.8-82.8); PLATELET COUNT 246 10^3/uL (134-434); RBC 4.32 M/mm3 (3.60-5.2); RDW 13.8 % (11.6-15.6); WHITE BLOOD COUNT 6.6 K/mm3 (4.0-10.0)
[2023-03-30] MEDS ORDERED: LORazepam 2 MG/ML SDV VIAL IVPUSH ONE (01:22)
[2023-03-30 02:36] LABS: CHLORIDE 112 mmol/L (98-107); POTASSIUM 3.8 mmol/L (3.5-5.1); SODIUM 141 mmol/L (136-145)
[2023-03-30 02:38] LABS: ALBUMIN 3.4 g/dl (3.4-5.0); ANION GAP 11 MMOL/L (8-16); BLOOD UREA NITROGEN 11.6 mg/dL (7-18); CALCIUM 8.1 mg/dL (8.5-10.1); CO2 17 mmol/L (21-32); GLUCOSE,RANDOM 151 mg/dL (74-106)
[2023-03-30 02:41] LABS: CREATININE 0.6 mg/dL (0.55-1.3); SGOT/AST 23 U/L (15-37); SGPT/ALT 31 U/L (13-61)
[2023-03-30 02:43] LABS: BILIRUBIN,TOTAL 0.3 mg/dL (0.2-1); TOT PROT 6.9 g/dl (6.4-8.2)
[2023-03-30 02:44] LABS: ALK PHOS 116 U/L (45-117)
[2023-03-30 05:03] LABS: ACTIVATED PTT 26.5 SECONDS (25.2-36.5); INR 1.04 (0.83-1.09); PROTHROMBIN TIME (PATIENT) 12.1 SEC (9.7-13.0)
[2023-03-30] MEDS ORDERED: LORazepam 1 MG TABLET PO ONE (08:28)
[2023-03-30] MEDS ORDERED: LORazepam 1 MG TABLET ONE (08:48)
[2023-03-30] MEDS ORDERED: KETOROLAC TROMETHAMINE 15 MG/ML VIAL IM PRN (09:59)
[2023-03-30] MEDS ORDERED: hydrOXYzine PAMOATE 25 MG CAPSULE (FP) PO PRN (09:59)
[2023-03-30] MEDS ORDERED: VANCOMYCIN/WATER FOR INJ (PEG) 1,000 MG/200 ML BAG IVPB SCH (10:00)
[2023-03-30] MEDS ORDERED: VANCOMYCIN 1,000 MG in DEXTROSE 5%-WATER - 250 ML IVPB SCH (10:00)
[2023-03-30] MEDS ORDERED: CEFEPIME HCL 2 GM VIAL (RESTRICTED TO ID) IVPB SCH (10:00)
[2023-03-30] MEDS ORDERED: CEFEPIME 2 GM in DEXTROSE 5%-WATER 100 ML IVPB SCH (10:00)
[2023-03-30] MEDS ORDERED: CEFEPIME 2 GM/100 ML BAG IVPB ONE (10:53)
[2023-03-30] MEDS ORDERED: VANCOMYCIN 1 GRAM (PRE-DOCKED) 1,000 MG/250 ML BAG IVPB ONE (10:53)
[2023-03-30] MEDS: LACTATED RINGERS SOLUTION 1,000 ML/1,000 ML INFUS.BAG IV SCH (14:52)
[2023-03-30 15:58] VITALS: BMI 32.7
[2023-03-30] MEDS: PIPERACILLIN/TAZOB 3.375 GM 3.375 GM in DEXTROSE 5%-WATER - 50 ML IVPB SCH (18:15)
[2023-03-30] MEDS: diazePAM CARPU-JECT 10 MG/2 ML DISP.SYRIN IVPUSH PRN (18:41)
[2023-03-30 19:55] LABS: EPI CELLS 22 /uL (0-25.1); HYALINE CASTS 2 /uL (0-3.1); PH,URINE 5.5 (5.0-8.0); URINE APPEARANCE CLEAR; URINE BACTERIA 80 /uL (0-1359); URINE BILIRUBIN NEGATIVE (NEGATIVE); URINE COLOR YELLOW; URINE GLUCOSE (UA) NEGATIVE (NEGATIVE); URINE KETONE NEGATIVE (NEGATIVE); URINE LEUK ESTERASE 1+ (NEGATIVE); URINE NITRITE NEGATIVE (NEGATIVE); URINE PROTEIN NEGATIVE (NEGATIVE); URINE RBC 36 /uL (0-23.9); URINE UROBILINOGEN 0.2 mg/dL (0.2-1.0); URINE WBC 45 /uL (0-25.8)
[2023-03-31] MEDS: diazePAM CARPU-JECT 10 MG/2 ML DISP.SYRIN IVPUSH PRN ×3 (00:51→20:16)
[2023-03-31] MEDS: PIPERACILLIN/TAZOB 3.375 GM 3.375 GM in DEXTROSE 5%-WATER - 50 ML IVPB SCH ×3 (01:22→19:01)
[2023-03-31] MEDS: VANCOMYCIN/WATER 1250 MG 1,250 MG/250 ML BAG IVPB SCH ×2 (02:03→13:21)
[2023-03-31] MEDS ORDERED: LEVOTHYROXINE NA 125 MCG TABLET (FP) PO SCH (07:45)
[2023-03-31] MEDS ORDERED: OXYBUTYNIN CHLORIDE 5 MG TABLET PO SCH (10:00)
[2023-03-31 12:14] LABS: EOS % 2.2 % (0-4.5); HEMATOCRIT 37.2 % (32.4-45.2); HEMOGLOBIN 11.8 GM/dL (10.7-15.3); LYMPH % 50.2 % (8-40); MCH 26.9 pg (25.7-33.7); MCHC 31.7 g/dl (32.0-36.0); MEAN CELL VOLUME 84.9 fl (80-96); MEAN PLT VOLUME 8.9 fl (7.5-11.1); MONO % 7.7 % (3.8-10.2); NEUT % 38.9 % (42.8-82.8); PLATELET COUNT 215 10^3/uL (134-434); RBC 4.38 M/mm3 (3.60-5.2); RDW 13.8 % (11.6-15.6); WHITE BLOOD COUNT 4.5 K/mm3 (4.0-10.0)
[2023-03-31 12:47] LABS: INR 1.14 (0.83-1.09); PROTHROMBIN TIME (PATIENT) 13.2 SEC (9.7-13.0)
[2023-03-31 12:50] LABS: CHLORIDE 110 mmol/L (98-107); POTASSIUM 4.3 mmol/L (3.5-5.1); SODIUM 141 mmol/L (136-145)
[2023-03-31] MEDS: LACTATED RINGERS SOLUTION 1,000 ML/1,000 ML INFUS.BAG IV SCH ×2 (13:22→17:55)
[2023-03-31 13:36] LABS: ALBUMIN 3.4 g/dl (3.4-5.0); ANION GAP 8 MMOL/L (8-16); BLOOD UREA NITROGEN 10.3 mg/dL (7-18); CALCIUM 8.1 mg/dL (8.5-10.1); CO2 23 mmol/L (21-32); GLUCOSE,RANDOM 73 mg/dL (74-106)
[2023-03-31 13:40] LABS: CREATININE 0.5 mg/dL (0.55-1.3); SGOT/AST 27 U/L (15-37); SGPT/ALT 34 U/L (13-61)
[2023-03-31 13:41] LABS: BILIRUBIN,TOTAL 0.4 mg/dL (0.2-1)
[2023-03-31 13:42] LABS: ALK PHOS 114 U/L (45-117); TOT PROT 6.6 g/dl (6.4-8.2)
[2023-03-31] MEDS ORDERED: PROPOFOL 40 ML ONE (15:05)
[2023-03-31] MEDS ORDERED: MIDAZOLAM HCL 2 MG/2 ML SINGLE DOSE VIAL ONE (15:06)
[2023-03-31] MEDS ORDERED: ONDANSETRON 4 MG/2 ML VIAL IVPUSH PRN (16:49)
[2023-03-31] MEDS ORDERED: KETOROLAC TROMETHAMINE 15 MG/ML VIAL IM PRN (16:57)
[2023-03-31] MEDS ORDERED: LACTATED RINGERS SOLUTION 1,000 ML IV SCH (17:00)
[2023-03-31] MEDS: OXYBUTYNIN CHLORIDE 5 MG TABLET PO SCH (21:48)
[2023-04-01] MEDS ORDERED: VANCOMYCIN/WATER 1250 MG 1,250 MG/250 ML BAG IVPB SCH (01:00)
[2023-04-01] MEDS: PIPERACILLIN/TAZOB 3.375 GM 3.375 GM in DEXTROSE 5%-WATER - 50 ML IVPB SCH ×2 (02:27→09:31)
[2023-04-01] MEDS: diazePAM CARPU-JECT 10 MG/2 ML DISP.SYRIN IVPUSH PRN (03:26)
[2023-04-01] MEDS: LACTATED RINGERS SOLUTION 1,000 ML/1,000 ML INFUS.BAG IV SCH (06:21)
[2023-04-01] MEDS ORDERED: LEVOTHYROXINE NA 125 MCG TABLET (FP) PO SCH (07:00)
[2023-04-01 07:05] VITALS: TEMP 98.1
[2023-04-01 09:20] LABS: BASO % 0.7 % (0-2.0); EOS % 1.9 % (0-4.5); HEMATOCRIT 32.9 % (32.4-45.2); HEMOGLOBIN 10.8 GM/dL (10.7-15.3); LYMPH % 35.2 % (8-40); MCH 27.9 pg (25.7-33.7); MCHC 32.7 g/dl (32.0-36.0); MEAN CELL VOLUME 85.2 fl (80-96); MEAN PLT VOLUME 8.7 fl (7.5-11.1); MONO % 7.6 % (3.8-10.2); NEUT % 54.6 % (42.8-82.8); PLATELET COUNT 194 10^3/uL (134-434); RBC 3.86 M/mm3 (3.60-5.2); RDW 13.6 % (11.6-15.6); WHITE BLOOD COUNT 6.5 K/mm3 (4.0-10.0)
[2023-04-01] MEDS: OXYBUTYNIN CHLORIDE 5 MG TABLET PO SCH (09:30)
[2023-04-01 09:44] LABS: CHLORIDE 112 mmol/L (98-107); POTASSIUM 4.3 mmol/L (3.5-5.1); SODIUM 145 mmol/L (136-145)
[2023-04-01 09:51] LABS: ALBUMIN 2.8 g/dl (3.4-5.0); ANION GAP 6 MMOL/L (8-16); BLOOD UREA NITROGEN 10.8 mg/dL (7-18); CO2 26 mmol/L (21-32); GLUCOSE,RANDOM 79 mg/dL (74-106)
[2023-04-01 09:52] LABS: MAGNESIUM 1.8 mg/dL (1.8-2.4)
[2023-04-01 09:55] LABS: CREATININE 0.5 mg/dL (0.55-1.3); SGOT/AST 19 U/L (15-37); SGPT/ALT 29 U/L (13-61)
[2023-04-01 09:57] LABS: ERYTHROCYTE SEDIMENTATION RATE 12 mm/hr (0-20); TOT PROT 5.8 g/dl (6.4-8.2)
[2023-04-01 09:58] LABS: BILIRUBIN,TOTAL 0.3 mg/dL (0.2-1)
[2023-04-01 09:59] LABS: ALK PHOS 103 U/L (45-117)
[2023-04-01] MEDS ORDERED: ONDANSETRON 4 MG TABLET PO PRN (10:01)
[2023-04-01] MEDS ORDERED: diazePAM 5 MG TABLET PO PRN (10:01)
[2023-04-01] MEDS ORDERED: IBUPROFEN 400 MG TABLET (FP) PO PRN (10:52)
[2023-04-01 11:22] VITALS: BP 112/74; PULSE 81; RESP 14
== END 2023-04-01 12:00 | disposition home or self-care (01) | DRG 857 ==
LOC: JER 22:06 → JERBED 03-30 04:54 → J8W 03-30 15:11
PROVIDERS: ADMIT Internal Medicine; ATTEND Nurse Practitioner Acute Care
PROC: 3E10X8Z Irrigation of Skin and Mucous Membranes using Irrigating Substance (ICD-10-PCS; 2023-03-31)
PROC: 0JB70ZZ Excision of Back Subcutaneous Tissue and Fascia, Open Approach (ICD-10-PCS; principal; 2023-03-31 15:00)
DX: T81.41XA Infection following a procedure, superficial incisional surgical site, initial encounter (principal); T81.31XA Disruption of external operation (surgical) wound, not elsewhere classified, initial encounter; B95.62 Methicillin resistant Staphylococcus aureus infection as the cause of diseases classified elsewhere; K58.9 Irritable bowel syndrome, unspecified; E03.9 Hypothyroidism, unspecified; N32.81 Overactive bladder; M54.9 Dorsalgia, unspecified; F41.8 Other specified anxiety disorders; E66.9 Obesity, unspecified; Z68.32 Body mass index [BMI] 32.0-32.9, adult; Y83.8 Other surgical procedures as the cause of abnormal reaction of the patient, or of later complication, without mention of misadventure at the time of the procedure
CPT/HCPCS: 36415; 72146-TC; 80053; 81003; 83735; 84703; 85025; 85610; 85651; 85730; 86140; 86850; 86900; 86901; 87040; 87070; 87086; 87186; 87205; 88304-TC; 93005; 93010; 94760; 99285-25